=== PATIENT | male | born 1970 | race Caucasian/White ===

== ENCOUNTER 2016-06-15 16:27 | Outpatient (CLI) | payer MEDICAID | END 2016-06-15 16:28 | disposition home or self-care (01) | DX: Z01.810 Encounter for preprocedural cardiovascular examination (principal); I10 Essential (primary) hypertension ==

== ENCOUNTER 2016-06-20 05:59 | Day surgery (SDC) | payer MEDICAID ==
[2016-06-20] MEDS ORDERED: ceFAZolin 2 GM/50 ML 50 ML IV ONE (06:41)
[2016-06-20] MEDS ORDERED: LACTATED RINGERS 1,000 ML IV ONE ×2 (06:52→08:11)
[2016-06-20] MEDS ORDERED: ePHEDrine 50 MG/ML VIAL IVP ONE (08:00)
[2016-06-20] MEDS ORDERED: NEOSTIGMINE 1 MG/1 ML 10 ML MDV IVP ONE (08:00)
[2016-06-20] MEDS ORDERED: SUCCINYLCHOLINE 200 MG/10 ML VIAL IVP ONE (08:00)
[2016-06-20] MEDS ORDERED: LIDOCAINE-MPF 2% 5 ML VIAL IM ONE (08:00)
[2016-06-20] MEDS ORDERED: DEXAMETHASONE 4 MG/ML VIAL IVP ONE (08:00)
[2016-06-20] MEDS ORDERED: KETOROLAC 30 MG/ML VIAL IVP ONE (08:00)
[2016-06-20] MEDS ORDERED: PROPOFOL 200 MG/20 ML VIAL IVP ONE (08:00)
[2016-06-20] MEDS ORDERED: ONDANSETRON 4 MG/2 ML VIAL IVP ONE (08:00)
[2016-06-20] MEDS ORDERED: ROCURONIUM 50 MG/5 ML VIAL IVP ONE (08:00)
[2016-06-20] MEDS ORDERED: fentaNYL 250 MCG/5 ML VIAL IVP ONE (08:00)
[2016-06-20] MEDS ORDERED: MIDAZOLAM 2 MG/2 ML VIAL IVP ONE (08:00)
[2016-06-20] MEDS ORDERED: GLYCOPYRROLATE 1 MG/5 ML VIAL IVP ONE (08:00)
[2016-06-20] MEDS ORDERED: ACETAMINOPHEN 1,000 MG/100 ML VIAL IV ONE (08:00)
[2016-06-20] MEDS ORDERED: BUPIVACAINE 0.5% PF 30 ML VIAL INFIL ONE (08:01)
[2016-06-20] MEDS ORDERED: KETOROLAC 15 MG/ML VIAL ONE (09:30)
[2016-06-20] MEDS: HYDROmorphone 1 MG/ML SYRINGE ONE ×2 (09:38→09:48)
[2016-06-20] MEDS ORDERED: oxyCOD/ACETAMIN 5 MG/325 MG TABLET PO ONE (10:25)
== END 2016-06-20 06:00 | disposition home or self-care (01) ==
PROC: 0YU64JZ Supplement Left Inguinal Region with Synthetic Substitute, Percutaneous Endoscopic Approach (ICD-10-PCS; principal; 2016-06-20 07:30)
DX: K40.91 Unilateral inguinal hernia, without obstruction or gangrene, recurrent (principal); I10 Essential (primary) hypertension; F17.210 Nicotine dependence, cigarettes, uncomplicated; Z88.5 Allergy status to narcotic agent; G47.33 Obstructive sleep apnea (adult) (pediatric)
CPT/HCPCS: 49651; A9270; C1781; J0131; J0690; J1170; J3010; J7120

== ENCOUNTER 2018-05-30 12:50 | Emergency (ER) | payer MEDICAID ==
[2018-05-30 13:05] VITALS: BP 160/100
== END 2018-05-30 14:00 | disposition left against medical advice (07) ==
LOC: ED 12:50
DX: S61.411A Laceration without foreign body of right hand, initial encounter (principal); W31.1XXA Contact with metalworking machines, initial encounter; Z53.21 Procedure and treatment not carried out due to patient leaving prior to being seen by health care provider
CPT/HCPCS: 99282

== ENCOUNTER 2019-09-08 20:58 | Outpatient (CLI) | payer MEDICAID | END 2019-09-08 20:59 | disposition critical access hospital (66) | LOC: EMS 20:58 | PROVIDERS: ATTEND Surgery | DX: R46.4 Slowness and poor responsiveness (principal); R45.851 Suicidal ideations; Z72.89 Other problems related to lifestyle | CPT/HCPCS: A0425; A0429; A0999 ==

== ENCOUNTER 2019-09-08 21:33 | Emergency (ER) | payer MEDICAID ==
--- NOTE | 2019-09-08 21:32 | ED Physician Documentation ---
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 Per EMS, patient's friend called 911 due to patient exhibiting decreased level of consciousness. Per EMS report, patient admits to drinking a fifth (hard liquor). Patient admits he has used methamphetamines (smoked). He arrives to ED awake, alert, oriented x 3. Review of Systems Constitutional: denies: Fever Cardiac: denies: Chest pain / pressure Respiratory: denies: Dyspnea, Cough GI: denies: Abdominal Pain Neurologic: reports: Altered mental status. denies: Generalized weakness, Focal weakness, Numbness, Headache, Head injury PD PAST MEDICAL HISTORY - Past Medical History Past Medical History: No - Present Medications Home Medications: Ambulatory Orders Medication Instructions Recorded Confirmed Losartan Potassium 100 mg PO DAILY 12/02/13 06/20/16 - Allergies Allergies/Adverse Reactions: Allergies Allergy/AdvReac Type Severity Reaction Status Date / Time codeine Allergy Intermediate Hives Verified 05/30/18 13:04 - Living Situation Living Arrangement: reports: At home - Social History Does the pt drink ETOH?: Yes Substance Use and Type: Meth PD ED PE NORMAL - Vitals Vital signs reviewed: Yes - General General: Alert and oriented X 3, No acute distress, Well developed/nourished, Other - HEENT HEENT: Atraumatic, PERRL, EOMI, Moist mucous membranes - Cardiac Cardiac: RRR, No murmur - Respiratory Respiratory: No respiratory distress, Clear bilaterally - Abdomen Abdomen: Soft, Non tender - Derm Derm: Normal color, Warm and dry - Neuro Neuro: Alert and oriented X 3 Eye Opening: Spontaneous Motor: Obeys Commands Verbal: Oriented GCS Score: 15 Results - Vitals Vitals: Vital Signs - 24 hr 09/08/19 21:37 Temperature 36.8 C Heart Rate 95 Respiratory 14 Rate Blood Pressure 145/103 H O2 Saturation 100 Oxygen O2 Source Room air - Labs Labs: Laboratory Tests 09/08/19 09/08/19 09/08/19 21:50 21:50 21:50 WBC 9.3 RBC 5.52 Hgb 17.7 Hct 51.5 MCV 93.3 MCH 32.1 H MCHC 34.4 RDW 13.2 Plt Count 288 MPV 9.7 Neut # (Auto) 6.0 Lymph # (Auto) 2.4 [place] # (Auto) 0.5 Eos # (Auto) 0.3 Baso # (Auto) 0.1 Absolute Nucleated RBC 0.00 Nucleated RBC % 0.0 Sodium 142 Potassium 3.6 Chloride 103 Carbon Dioxide 28 Anion Gap 11.0 BUN 11 Creatinine 0.8 Estimated GFR (MDRD) 103 Glucose 103 H Calcium 9.2 Total Bilirubin 0.7 AST 17 ALT 14 Alkaline Phosphatase 81 Total Protein 7.5 Albumin 4.4 Globulin 3.1 Albumin/Globulin Ratio 1.4 Lipase 26 Urine Color YELLOW Urine Clarity CLEAR Urine pH 6.0 Ur Specific [place] <=1.005 Urine Protein NEGATIVE Urine Glucose (UA) NEGATIVE Urine Ketones NEGATIVE Urine Occult Blood NEGATIVE Urine Nitrite NEGATIVE Urine Bilirubin NEGATIVE Urine Urobilinogen 0.2 (NORMAL) Ur Leukocyte Esterase NEGATIVE Ur Microscopic Review NOT INDICATED Urine Culture Comments NOT INDICATED Salicylates < 6.0 Urine Opiates Screen NEGATIVE Ur Oxycodone Screen NEGATIVE Urine Methadone Screen NEGATIVE Ur Propoxyphene Screen NEGATIVE Acetaminophen < 10 L Ur Barbiturates Screen NEGATIVE Ur Tricyclics Screen NEGATIVE Ur Phencyclidine Scrn NEGATIVE Ur Amphetamine Screen POSITIVE H U Methamphetamines Scrn POSITIVE H U Benzodiazepines Scrn NEGATIVE Urine Cocaine Screen NEGATIVE U Cannabinoids Screen NEGATIVE Ethyl Alcohol 162.9 PD MEDICAL DECISION MAKING - ED course Complexity details: reviewed results, re-evaluated patient, considered differential, d/w patient ED course: test results c/w alcohol intoxication and UDS is positive for methamphetamines. Patient's mother arrived to ED late in his stay and tells me that patient is suicidal and she wants him placed "on suicide watch" (per patient's mother). I ask her to clarify what she means by this, and she says she wants him placed on a 72-hour hold. I explained to her that he has not indicated to me that he is suicidal; she then confronted the patient about this and he repeatedly denies suicidal intent. A brief verbal argument ensued between patient and his mother and he then walked out of the ED. Patient's mother tells me that patient's friend told her that he had expressed suicidal thoughts. I do not feel that this third-hand information is sufficient to hold patient against his will in the ED and I explained this to patient's mother; she did not appear to be satisfied with this explanation. Of note, despite patient's alcohol level, he was AAOx3 and thus I do not feel that this was sufficient cause to hold patient in the ED against his will Departure - Departure Disposition: ED [place] Clinical Impression: Methamphetamine use Alcohol intoxication Qualifiers: Complication of substance-induced condition: uncomplicated Qualified Code(s): F10.920 - Alcohol use, unspecified with intoxication, uncomplicated Condition: Good Discharge Date/Time: 09/08/19 23:32
[2019-09-08 21:41] VITALS: BP 145/103
[2019-09-08 21:52] LABS: MUDS CUTOFF CONCENTRATIONS CUTOFF CONC BELOW:
[2019-09-08 21:54] LABS: BASOPHILS # (AUTO) 0.1 10^3/uL (0.0-0.1); BASOPHILS % (AUTO) 0.6 %; EOSINOPHILS # (AUTO) 0.3 10^3/uL (0.0-0.7); HGB - HEMOGLOBIN 17.7 g/dL (14.0-18.0); LYMPHOCYTES # (AUTO) 2.4 10^3/uL (1.5-3.5); MEAN CORPUSCULAR HEMOGLOBIN 32.1 pg (27.0-31.0); MEAN CORPUSCULAR HGB CONC 34.4 g/dL (32.0-36.0); MEAN CORPUSCULAR VOLUME 93.3 fL (80.0-94.0); MEAN PLATELET VOLUME 9.7 fL (7.4-11.4); MONOCYTES # (AUTO) 0.5 10^3/uL (0.0-1.0); MONOCYTES % (AUTO) 5.8 %; NEUTROPHILS % (AUTO) 64.4 %; PLT - PLATELET COUNT 288 10^3/uL (130-450); RED BLOOD COUNT 5.52 10^6/uL (4.70-6.10); RED CELL DISTRIBUTION WIDTH 13.2 % (12.0-15.0); WHITE BLOOD COUNT 9.3 x10^3/uL (4.8-10.8)
[2019-09-08 21:55] LABS: BILIRUBIN,URINE NEGATIVE (NEGATIVE); GLUCOSE, URINE (UA) NEGATIVE (NEGATIVE); KETONES,URINE (UA) NEGATIVE (NEGATIVE); LEUKOCYTE ESTERASE, URINE NEGATIVE (NEGATIVE); NITRITE,URINE NEGATIVE (NEGATIVE); OCCULT BLOOD,URINE NEGATIVE (NEGATIVE); PROTEIN,URINE NEGATIVE (NEGATIVE); UROBILINOGEN,URINE 0.2 (NORMAL) E.U./dL (NORMAL)
[2019-09-08 21:57] LABS: CLARITY,URINE CLEAR (CLEAR)
[2019-09-08 22:08] LABS: ACETAMINOPHEN < 10 ug/mL (10-30); ALBUMIN 4.4 g/dL (3.2-5.5); ALBUMIN/GLOBULIN RATIO 1.4 (1.0-2.2); ALKALINE PHOSPHATASE 81 IU/L (42-121); ALT ALANINE AMINOTRANSFERASE 14 IU/L (10-60); AMPHETAMINE SCREEN,URINE POSITIVE (NEGATIVE); AST ASPARTATE AMINOTRANSFERASE 17 IU/L (10-42); BENZODIAZEPINES SCREEN, URINE NEGATIVE (NEGATIVE); BILIRUBIN,TOTAL 0.7 mg/dL (0.2-1.0); BUN - BLOOD UREA NITROGEN 11 mg/dL (6-20); CALCIUM 9.2 mg/dL (8.5-10.3); CARBON DIOXIDE - CO2 28 mmol/L (21-32); CHLORIDE 103 mmol/L (101-111); COCAINE SCREEN URINE NEGATIVE (NEGATIVE); CREATININE 0.8 mg/dL (0.6-1.2); GLUCOSE 103 mg/dL (70-100); LIPASE 26 U/L (22-51); METHADONE SCREEN, URINE NEGATIVE (NEGATIVE); METHAMPHETAMINES SCREEN, URINE POSITIVE (NEGATIVE); OPIATE SCREEN, URINE NEGATIVE (NEGATIVE); OXYCODONE SCREEN, URINE NEGATIVE (NEGATIVE); PROPOXYPHENE SCREEN, URINE NEGATIVE (NEGATIVE); SALICYLATE < 6.0 mg/dL; SODIUM 142 mmol/L (135-145); TOTAL PROTEIN 7.5 g/dL (6.7-8.2); TRICYCLIC ANTIDEPRESSANT,URINE NEGATIVE (NEGATIVE)
== END 2019-09-08 23:32 | disposition left against medical advice (07) ==
LOC: EDUNIT# → ED 21:33
DX: F15.90 Other stimulant use, unspecified, uncomplicated (principal); F10.920 Alcohol use, unspecified with intoxication, uncomplicated
CPT/HCPCS: 36415; 80053; 80306; 80307; 80320; 80329; 81001; 81003; 83690; 85025; 87086; 99283; 99284

== ENCOUNTER 2019-09-09 12:58 | Emergency (ER) | payer MEDICAID ==
--- NOTE | 2019-09-09 13:06 | ED Physician Documentation ---
PD HPI MHE - Stated complaint Stated Complaint: MHE - History obtained from History obtained from: Patient, Police - History of Present Illness Primary symptom: Medical clearance (48-year-old gentleman brought in accompanied by to 's deputies with residential paperwork from the DCR. Initially asking the patient, he does not know why he is here. He says simply that he got really drunk last night and also used some dope, he was here last night and eloped, it looks like the mom claimed that he had said something about suicidal ideation but the patient left. Now brought back and after talking to the DCR Cheri, there is significant concern about his behavior as an outpatient and he has access to guns which he lied about and not all of them have been found.) Review of Systems Ten Systems: 10 systems reviewed and negative Constitutional: reports: Reviewed and negative Nose: reports: Reviewed and negative Throat: reports: Reviewed and negative Respiratory: reports: Reviewed and negative PD PAST MEDICAL HISTORY - Present Medications Home Medications: Ambulatory Orders Medication Instructions Recorded Confirmed Losartan Potassium 100 mg PO DAILY 12/02/13 06/20/16 - Allergies Allergies/Adverse Reactions: Allergies Allergy/AdvReac Type Severity Reaction Status Date / Time codeine Allergy Intermediate Hives Verified 05/30/18 13:04 - Social History Does the pt smoke?: Yes Smoking Status: Current every day smoker Does the pt drink ETOH?: Yes Does the pt have substance abuse?: Yes Substance Use and Type: Meth - Family History Family history: reports: Non contributory PD ED PE NORMAL - Vitals Vital signs reviewed: Yes - General General: Alert and oriented X 3, No acute distress - HEENT HEENT: PERRL, EOMI - Neck Neck: Supple, no meningeal sign, No bony TTP - Cardiac Cardiac: RRR, No murmur - Respiratory Respiratory: No respiratory distress, Clear bilaterally - Abdomen Abdomen: Normal bowel sounds, Soft, Non tender - Back Back: No CVA TTP, No spinal TTP - Derm Derm: Normal color, Warm and dry - Extremities Extremities: No edema, No calf tenderness / cord - Neuro Neuro: Alert and oriented X 3, No motor deficit, No sensory deficit, Normal speech Eye Opening: Spontaneous Motor: Obeys Commands Verbal: Oriented GCS Score: 15 - Psych Psych: Normal mood, Normal affect Results - Vitals Vitals: Vital Signs - 24 hr 09/09/19 09/09/19 09/09/19 13:07 18:40 19:39 Temperature 36.8 C 36.9 C 36.8 C Heart Rate 107 H 97 98 Respiratory 20 16 16 Rate Blood Pressure 175/116 H 165/104 H 139/90 H O2 Saturation 100 99 97 Oxygen O2 Source Room air - Labs Labs: Laboratory Tests 09/09/19 09/09/19 09/09/19 13:17 13:17 13:17 WBC 8.8 RBC 5.77 Hgb 18.3 H Hct 52.7 H MCV 91.3 MCH 31.7 H MCHC 34.7 RDW 13.1 Plt Count 315 MPV 9.8 Neut # (Auto) 5.8 Lymph # (Auto) 1.9 [place] # (Auto) 0.8 Eos # (Auto) 0.3 Baso # (Auto) 0.1 Absolute Nucleated RBC 0.00 Nucleated RBC % 0.0 Sodium 138 Potassium 3.6 Chloride 99 L Carbon Dioxide 29 Anion Gap 10.0 BUN 14 Creatinine 0.8 Estimated GFR (MDRD) 103 Glucose 100 Calcium 9.5 Total Bilirubin 0.9 AST 20 ALT 17 Alkaline Phosphatase 81 Total Protein 7.7 Albumin 4.6 Globulin 3.1 Albumin/Globulin Ratio 1.5 Lipase 28 TSH 1.58 Salicylates < 6.0 Urine Opiates Screen Ur Oxycodone Screen Urine Methadone Screen Ur Propoxyphene Screen Acetaminophen < 10 L Ur Barbiturates Screen Ur Tricyclics Screen Ur Phencyclidine Scrn Ur Amphetamine Screen U Methamphetamines Scrn U Benzodiazepines Scrn Urine Cocaine Screen U Cannabinoids Screen Ethyl Alcohol < 5.0 09/09/19 13:21 WBC RBC Hgb Hct MCV MCH MCHC RDW Plt Count MPV Neut # (Auto) Lymph # (Auto) [place] # (Auto) Eos # (Auto) Baso # (Auto) Absolute Nucleated RBC Nucleated RBC % Sodium Potassium Chloride Carbon Dioxide Anion Gap BUN Creatinine Estimated GFR (MDRD) Glucose Calcium Total Bilirubin AST ALT Alkaline Phosphatase Total Protein Albumin Globulin Albumin/Globulin Ratio Lipase TSH Salicylates Urine Opiates Screen NEGATIVE Ur Oxycodone Screen NEGATIVE Urine Methadone Screen NEGATIVE Ur Propoxyphene Screen NEGATIVE Acetaminophen Ur Barbiturates Screen NEGATIVE Ur Tricyclics Screen NEGATIVE Ur Phencyclidine Scrn NEGATIVE Ur Amphetamine Screen POSITIVE H U Methamphetamines Scrn NEGATIVE U Benzodiazepines Scrn NEGATIVE Urine Cocaine Screen NEGATIVE U Cannabinoids Screen NEGATIVE Ethyl Alcohol PD MEDICAL DECISION MAKING - ED course ED course: Based on statements from mother the patient is being detained by the DCR for inpatient treatment and is involuntary for same. DCR found a bed at [facility] and cobras were completed. He is stable for transport. Departure - Departure Disposition: 65 [facility]/Unit DC/Xfer Clinical Impression: Drug abuse, Alcohol abuse
[2019-09-09 13:29] LABS: MUDS CUTOFF CONCENTRATIONS CUTOFF CONC BELOW:
[2019-09-09 13:37] LABS: ACETAMINOPHEN < 10 ug/mL (10-30); ALBUMIN 4.6 g/dL (3.2-5.5); ALBUMIN/GLOBULIN RATIO 1.5 (1.0-2.2); ALKALINE PHOSPHATASE 81 IU/L (42-121); ALT ALANINE AMINOTRANSFERASE 17 IU/L (10-60); AST ASPARTATE AMINOTRANSFERASE 20 IU/L (10-42); BILIRUBIN,TOTAL 0.9 mg/dL (0.2-1.0); BUN - BLOOD UREA NITROGEN 14 mg/dL (6-20); CALCIUM 9.5 mg/dL (8.5-10.3); CARBON DIOXIDE - CO2 29 mmol/L (21-32); CHLORIDE 99 mmol/L (101-111); CREATININE 0.8 mg/dL (0.6-1.2); GLUCOSE 100 mg/dL (70-100); LIPASE 28 U/L (22-51); SALICYLATE < 6.0 mg/dL; SODIUM 138 mmol/L (135-145); TOTAL PROTEIN 7.7 g/dL (6.7-8.2)
[2019-09-09 13:42] LABS: AMPHETAMINE SCREEN,URINE POSITIVE (NEGATIVE); BENZODIAZEPINES SCREEN, URINE NEGATIVE (NEGATIVE); COCAINE SCREEN URINE NEGATIVE (NEGATIVE); METHADONE SCREEN, URINE NEGATIVE (NEGATIVE); METHAMPHETAMINES SCREEN, URINE NEGATIVE (NEGATIVE); OPIATE SCREEN, URINE NEGATIVE (NEGATIVE); OXYCODONE SCREEN, URINE NEGATIVE (NEGATIVE); PROPOXYPHENE SCREEN, URINE NEGATIVE (NEGATIVE); TRICYCLIC ANTIDEPRESSANT,URINE NEGATIVE (NEGATIVE)
[2019-09-09 13:48] LABS: BASOPHILS # (AUTO) 0.1 10^3/uL (0.0-0.1); BASOPHILS % (AUTO) 0.7 %; EOSINOPHILS # (AUTO) 0.3 10^3/uL (0.0-0.7); HGB - HEMOGLOBIN 18.3 g/dL (14.0-18.0); LYMPHOCYTES # (AUTO) 1.9 10^3/uL (1.5-3.5); LYMPHOCYTES % (AUTO) 21.3 %; MEAN CORPUSCULAR HEMOGLOBIN 31.7 pg (27.0-31.0); MEAN CORPUSCULAR HGB CONC 34.7 g/dL (32.0-36.0); MEAN CORPUSCULAR VOLUME 91.3 fL (80.0-94.0); MEAN PLATELET VOLUME 9.8 fL (7.4-11.4); MONOCYTES # (AUTO) 0.8 10^3/uL (0.0-1.0); MONOCYTES % (AUTO) 8.5 %; NEUTROPHILS # (AUTO) 5.8 10^3/uL (1.5-6.6); PLT - PLATELET COUNT 315 10^3/uL (130-450); RED BLOOD COUNT 5.77 10^6/uL (4.70-6.10); RED CELL DISTRIBUTION WIDTH 13.1 % (12.0-15.0); WHITE BLOOD COUNT 8.8 x10^3/uL (4.8-10.8)
[2019-09-09] MEDS ORDERED: NICOTINE 14 MG PATCH TOP STA (17:27)
[2019-09-09 19:40] VITALS: BP 139/90
== END 2019-09-09 21:35 ==
LOC: ED 13:02
DX: F15.10 Other stimulant abuse, uncomplicated (principal); F10.10 Alcohol abuse, uncomplicated; F17.200 Nicotine dependence, unspecified, uncomplicated; Z11.59 Encounter for screening for other viral diseases
CPT/HCPCS: 36415; 80053; 80306; 80307; 80320; 80329; 83690; 84443; 85025; 87635; 99283; 99285; A9270; 81599

== ENCOUNTER 2019-09-18 08:31 | Inpatient (IN) | payer MEDICAID ==
[2019-09-18] MEDS ORDERED: SODIUM CHLORIDE 0.9% 1,000 ML IV STA (08:39)
[2019-09-18] MEDS ORDERED: HYDROmorphone 1 MG/ML CARPUJECT IVP STA ×2 (08:39→09:36)
--- NOTE | 2019-09-18 08:44 | ED Physician Documentation ---
PD HPI SKIN - Stated complaint Stated Complaint: ALLERGIC RX - History obtained from History obtained from: Patient - Additional information Additional information: 49-year-old gentleman with history of alcohol and drug abuse. He was recently detained for same and got out of the detox facility on the . On that date he received a Vivitrol Injection in the right buttock. About 3 days later, about 4 days ago, he started develop pain and swelling in the area of the injection and now pain is severe. He denies measured fevers but does have chills and sweats. He smoked some dope last night "for the pain." Review of Systems Ten Systems: 10 systems reviewed and negative Constitutional: reports: Chills, Sweats Cardiac: reports: Reviewed and negative Respiratory: reports: Reviewed and negative GI: reports: Reviewed and negative : reports: Reviewed and negative PD PAST MEDICAL HISTORY - Past Medical History Past Medical History: Yes Psych: Anxiety - Present Medications Home Medications: Ambulatory Orders Medication Instructions Recorded Confirmed Losartan Potassium 50 mg PO DAILY 12/02/13 09/18/19 - Allergies Allergies/Adverse Reactions: Allergies Allergy/AdvReac Type Severity Reaction Status Date / Time codeine Allergy Intermediate Hives Verified 05/30/18 13:04 - Social History Does the pt smoke?: Yes Smoking Status: Current every day smoker Does the pt drink ETOH?: Yes Does the pt have substance abuse?: Yes Substance Use and Type: Meth - Family History Family history: reports: Non contributory PD ED PE NORMAL - Vitals Vital signs reviewed: Yes - General General: Other (He appears somewhat histrionic and uncomfortable, clearly in pain.") - HEENT HEENT: PERRL, EOMI - Neck Neck: Supple, no meningeal sign, No bony TTP - Cardiac Cardiac: RRR, No murmur - Respiratory Respiratory: No respiratory distress, Clear bilaterally - Abdomen Abdomen: Soft, Non tender - Back Back: Other (There is an area of redness measuring Approximately 15 x 11 cm on the lateral right buttock. It is very tender. No crepitance.) - Derm Derm: Normal color, Warm and dry - Extremities Extremities: No edema, No calf tenderness / cord - Neuro Neuro: Alert and oriented X 3, Normal speech Results - Vitals Vitals: Vital Signs - 24 hr 09/18/19 09/18/19 09/18/19 08:41 09:07 09:34 Temperature 37 C 38.7 C H Heart Rate 93 88 88 Respiratory 24 22 18 Rate Blood Pressure 122/98 H 124/81 H 135/75 H O2 Saturation 100 100 100 09/18/19 09/18/19 10:00 10:30 Temperature Heart Rate 103 H 95 Respiratory 20 17 Rate Blood Pressure 137/67 H 122/70 O2 Saturation 98 99 Oxygen O2 Source Room air - Labs Labs: Laboratory Tests 09/18/19 09/18/19 09/18/19 08:45 08:45 08:45 WBC 13.6 H RBC 5.32 Hgb 16.2 Hct 46.6 MCV 87.6 MCH 30.5 MCHC 34.8 RDW 13.2 Plt Count 286 MPV 10.1 Neut # (Auto) Not Reportable Lymph # (Auto) Not Reportable [place] # (Auto) Not Reportable Eos # (Auto) Not Reportable Baso # (Auto) Not Reportable Absolute Nucleated RBC Not Reportable Total Counted 100 Band Neuts % (Manual) 4 Reactive Lymphs % (Man) 1 Abnorm Lymph % (Manual) 0 Nucleated RBC % Not Reportable Neutrophils # (Manual) 11.2 H Lymphocytes # (Manual) 1.6 Monocytes # (Manual) 0.7 Eosinophils # (Manual) 0.1 Basophils # (Manual) 0.0 Differential Comment MANUAL DIFFERENTIAL Sodium 134 L Potassium 3.5 Chloride 99 L Carbon Dioxide 23 Anion Gap 12.0 BUN 11 Creatinine 0.8 Estimated GFR (MDRD) 103 Glucose 116 H Lactic Acid 1.6 Calcium 8.8 Total Bilirubin 1.3 H AST 28 ALT 26 Alkaline Phosphatase 74 C-Reactive Protein Total Protein 7.1 Albumin 3.5 Globulin 3.6 Albumin/Globulin Ratio 1.0 Lipase 26 Ethyl Alcohol < 5.0 09/18/19 08:45 WBC RBC Hgb Hct MCV MCH MCHC RDW Plt Count MPV Neut # (Auto) Lymph # (Auto) [place] # (Auto) Eos # (Auto) Baso # (Auto) Absolute Nucleated RBC Total Counted Band Neuts % (Manual) Reactive Lymphs % (Man) Abnorm Lymph % (Manual) Nucleated RBC % Neutrophils # (Manual) Lymphocytes # (Manual) Monocytes # (Manual) Eosinophils # (Manual) Basophils # (Manual) Differential Comment Sodium Potassium Chloride Carbon Dioxide Anion Gap BUN Creatinine Estimated GFR (MDRD) Glucose Lactic Acid Calcium Total Bilirubin AST ALT Alkaline Phosphatase C-Reactive Protein 14.9 H Total Protein Albumin Globulin Albumin/Globulin Ratio Lipase Ethyl Alcohol - Rads (name of study) Ct Pelvis Radiology: EMP read contemporaneously (Intermediate density focus in the right gluteal musculature compatible with phlegmon and surrounding myositis.) PD MEDICAL DECISION MAKING - ED course ED course: 49-year-old gentleman presents with a buttock infection related to a recent Vivitrol injection. He was febrile here and has an elevated white count. Fluid collection is quite deep and would not be amenable to emergency department incision and drainage. Spoke with the on-call surgeon, Dr. Singleton at about 9:50 AM and he will see him after clinic today, defers to medicine for admission. Departure - Departure Disposition: 66 [facility] DC/Xfjake Clinical Impression: Abscess of buttock, right Condition: Serious Discharge Date/Time: 09/18/19 11:35
[2019-09-18 09:07] LABS: RED CELL DISTRIBUTION WIDTH 13.2 % (12.0-15.0)
[2019-09-18 09:11] LABS: BASOPHILS % (AUTO) 0.4 %; EOSINOPHILS % (AUTO) 1.6 %; HGB - HEMOGLOBIN 16.2 g/dL (14.0-18.0); LYMPHOCYTES % (AUTO) 9.6 %; MEAN CORPUSCULAR HEMOGLOBIN 30.5 pg (27.0-31.0); MEAN CORPUSCULAR HGB CONC 34.8 g/dL (32.0-36.0); MEAN CORPUSCULAR VOLUME 87.6 fL (80.0-94.0); MEAN PLATELET VOLUME 10.1 fL (7.4-11.4); MONOCYTES % (AUTO) 12.4 %; NEUTROPHILS % (AUTO) 75.6 %; PLT - PLATELET COUNT 286 10^3/uL (130-450); RED BLOOD COUNT 5.32 10^6/uL (4.70-6.10); WHITE BLOOD COUNT 13.6 x10^3/uL (4.8-10.8)
[2019-09-18 09:17] LABS: ALBUMIN 3.5 g/dL (3.2-5.5); ALKALINE PHOSPHATASE 74 IU/L (42-121); ALT ALANINE AMINOTRANSFERASE 26 IU/L (10-60); AST ASPARTATE AMINOTRANSFERASE 28 IU/L (10-42); BILIRUBIN,TOTAL 1.3 mg/dL (0.2-1.0); BUN - BLOOD UREA NITROGEN 11 mg/dL (6-20); CALCIUM 8.8 mg/dL (8.5-10.3); CARBON DIOXIDE - CO2 23 mmol/L (21-32); CHLORIDE 99 mmol/L (101-111); CREATININE 0.8 mg/dL (0.6-1.2); GLUCOSE 116 mg/dL (70-100); LIPASE 26 U/L (22-51); SODIUM 134 mmol/L (135-145); TOTAL PROTEIN 7.1 g/dL (6.7-8.2)
[2019-09-18] MEDS ORDERED: IOVERSOL 320 100 ML VIAL IVP ONE ×2 (09:17→13:35)
[2019-09-18 09:18] LABS: ABNORMAL LYMPHS % (MANUAL) 0 %
[2019-09-18] MEDS ORDERED: VANCOMYCIN INJ 1.5 GM in SODIUM CHLORIDE 0.9% 500 ML IV STA (09:36)
[2019-09-18] MEDS ORDERED: CEFEPIME 2 GM in SODIUM CHLORIDE 0.9% MINIBAG 100 ML IV STA (09:36)
[2019-09-18] MEDS ORDERED: ACETAMINOPHEN 325 MG TABLET PO STA (09:36)
[2019-09-18 09:47] LABS: BAND NEUTROPHILS % (MANUAL) 4 %; DIFFERENTIAL COMMENT MANUAL DIFFERENTIAL; EOSINOPHILS # (MANUAL) 0.1 10^3/uL (0-0.7); LYMPHOCYTES # (MANUAL) 1.6 10^3/uL (1.5-3.5); LYMPHOCYTES % (MANUAL) 11 %; MONOCYTES # (MANUAL) 0.7 10^3/uL (0.0-1.0)
--- NOTE | 2019-09-18 09:51 | CT Report ---
PROCEDURE: PELVIS W INDICATIONS: R buttock infection, IV only, CONTRAST: IV CONTRAST: Optiray 320 ml: 100 PO CONTRAST: *NO PO CONTRAST TECHNIQUE: After the administration of oral contrast and intravenous contrast, 5 mm thick sections acquired from the iliac crests to the symphysis. 5 mm thick coronal and sagittal reformats were acquired. For ra diation dose reduction, the following was used: automated exposure control, adjustment of mA and/or kV according to patient size. COMPARISON: FINDINGS: Image quality: Excellent. Peritoneum and bowel: Contrast enhanced bowel loops demonstrate normal wall thickness and caliber. No free fluid or air. Normal appendix. Genitourinary: Bladder wall thickness is normal. Nodes and vessels: No iliac, pelvic, or inguinal adenopathy. Iliac vessels demonstrate normal size and enhancement. Bones: No suspicious bony lesions. Bilateral L5-S1 pars interarticularis defects. Miscellaneous: Fat-containing left inguinal hernia. There is enlargement of the right gluteus medius musculature. There is a 45 mm diameter ill-defined intermediate density focus within the right glutea l musculature. There is moderate fast attending surrounding the right gluteal musculature. IMPRESSION: 1. Intermediate density focus within the right gluteal musculature, compatible with phlegmon. No perc utaneously drainable fluid collection. There is surrounding right gluteal myositis as well as overlyi ng subcutaneous cellulitis. 2. Normal appendix. 3. Bilateral L5-S1 pars interarticularis defects. Reviewed by: Марина Louie MD on 09/18/2019 9:49 AM PDT Approved by: Марина Louie MD on 09/18/2019 9:49 AM PDT Station ID: [id number]
[2019-09-18] MEDS ORDERED: VANCOMYCIN INJ 1.5 GM in SODIUM CHLORIDE 0.9% 500 ML IV ONE (10:15)
[2019-09-18] MEDS ORDERED: MORPHINE 2 MG/ML CARPUJECT IVP PRN (10:40)
[2019-09-18] MEDS ORDERED: ONDANSETRON 4 MG/2 ML VIAL IVP PRN (10:40)
--- NOTE | 2019-09-18 10:53 | HISTORY & PHYSICAL EXAMINATION ---
Chief Complaint - Chief Complaint Chief Complaint: buttock pain History of Present Illness - History of Present Illness HPI Comment/Other: This is 49-year-old gentleman with history of HTN, alcohol and drug abuse who present ER complain of right buttock pain. pt report he received Vivitrol Injection in the right buttock on detox facility on 09/11/2019. About 3-4 days ago, he started develop pain and swelling in the area where he had injection. His pain became more severe now. He denies measured fevers but he report he had chills and sweats. He report is still smoking cigarette and is smoking Meth on last night for "pain control." Patient denied chest pain, abdominal pain, nausea vomiting or diarrhea and denies difficulty breathing. CT of pelvis shows No percutaneously drainage fluid collection, There is surrounding right gluteal myositis as well as overlying subcutaneous cellutis. Concern of fluid collection, ER called surgeon for consultation. In routine lab test show significantly elevated WBC and elevated CRP Otherwise unremarkable. ER, patient was found febrile at 38.7 degrees. Patient was admitted for further medical management Discussed with the patient about his care goal, patient stay he request full code. History - Past Medical History Cardiovascular: reports: Hypertension Respiratory: reports: None Neuro: reports: Head injury Endocrine/Autoimmune: reports: None GI: reports: None : reports: None HEENT: reports: Chronic hearing loss Psych: reports: Anxiety Musculoskeletal: reports: Chronic back pain Derm: reports: None MRSA Hx?: No - Past Surgical History Ortho: reports: Carpal Tunnel surgery Derm: reports: Skin grafts - POLST Patient has POLST: No Meds/Allgy - Home Medications Home Medications: Ambulatory Orders Medication Instructions Recorded Confirmed Losartan Potassium 50 mg PO DAILY 12/02/13 09/18/19 - Allergies Allergies/Adverse Reactions: Allergies Allergy/AdvReac Type Severity Reaction Status Date / Time codeine Allergy Intermediate Hives Verified 05/30/18 13:04 Review of Systems - Constitutional Constitutional: reports: Chills. denies: Fatigue, Fever, Malaise, Weakness, Poor appetite, Diaphoresis, Night sweats - Eyes Eyes: denies: Pain, Blurred vision, Spots in vision, Field loss, Vision loss, Dipolpia - Ears, Nose & Throat Ears, Nose & Throat: denies: Hearing loss, Tinnitus, Vertigo, Nasal discharge, Nasal obstruction, Nasal congestion, Postnasal drainage, Sore throat, Mouth lesions, Bleeding gums - Cardiovascular Cariovascular: denies: Irregular heart rate, Palpitations, Chest pain, Edema, Lightheadedness, Syncope, Exertional dyspnea, Decr. exercise tolerance - Respiratory Respiratory: denies: Cough, Sputum production, Wheezing, Snoring, Hemoptysis, Orthopnea, SOB at rest, SOB with exertion - Gastrointestinal Gastrointestinal: denies: Abdominal pain, Abdominal distention, Constipation, Diarrhea, Rectal bleeding, Black stools, Bloody stools, Nausea, Vomiting, Bile emesis, Coffee grounds emesis - Genitourinary Genitourinary: denies: Frequency, Urgency, Hematuria, Incontinence, Flank pain, Nocturia - Musculoskeletal Musculoskeletal: reports: Muscle pain, Muscle aches. denies: Back pain, Stiffness, Limited range of motion, Muscle weakness, Gout, Joint pain - Integumentary Integumentary: reports: Other (pt report right buttock pain). denies: Rash, Pruritis, Dryness, Lumps, Pigment changes - Neurological Neurological: denies: General weakness, Focal weakness, Headache, Dizziness, Numbness, Memory problems, Pre-existing deficit, Abnormal gait, Seizures, Incoordination, Slurred speech - Psychiatric Psychiatric: denies: Suicidal, Delusions, Hallucinations, Homicidal - Endocrine Endocrine: denies: Polyuria, Polydypsia, Polyphagia - Hematologic/Lymphatic Hematologic/Lymphatic: denies: Anemia, Bruising, Petechiae, Blood clots, Lymphadenopathy, Bleeding tendencies Exam - Vital Signs Vital Signs: Vital Signs x48h Temp Pulse Resp BP Pulse Ox 09/18/19 10:48 37.5 C 94 16 122/70 98 09/18/19 10:30 95 17 122/70 99 09/18/19 10:00 103 H 20 137/67 H 98 09/18/19 09:34 38.7 C H 88 18 135/75 H 100 09/18/19 09:07 88 22 124/81 H 100 09/18/19 08:41 37 C 93 24 122/98 H 100 - Physical Exam General Appearance: positive: Alert, Mild distress. negative: Lethargic Eyes Bilateral: positive: Normal inspection, PERRL, No lid inflammation ENT: positive: ENT inspection nml, Pharynx nml, No signs of dehydration. negative: Purulent nasal drainage, Dry mucous membranes Neck: positive: Nml inspection, Thyroid nml, No JVD, Trachea midline. negative: Thyromegaly, Stiff neck, Tracheal deviation Respiratory: positive: Chest non-tender, No respiratory distress, Breath sounds nml. negative: Wheezes, Rales, Rhonchi Cardiovascular: positive: Regular rate & rhythm, No murmur, No gallop. ne gative: Tachycardia, Bradycardia, JVD present, Systolic murmur, Diastolic murmur Peripheral Pulses: positive: 2+ Abdomen: positive: Non-tender, No organomegaly, Nml bowel sounds, No distention. negative: Tenderness, Guarding, Rebound Back: positive: Nml inspection. negative: CVA tenderness (R), CVA tenderness (L) Skin: positive: Color nml, No rash, Warm, Dry, Other (right buttock is tender and swelling but with normal color. pt report he has pain on palpitation.). negative: Cyanosis, Diaphoresis, Pallor Extremities: positive: Non-tender, Nml appearance. negative: Calf tenderness, Chris's sign/cords Neurologic/Psychiatric: positive: Oriented x3, Motor nml, Sensation nml, Mood/affect nml. negative: Weakness, Sensory loss, Facial droop, Slurred/abnml speech, Depressed mood/affect Sepsis Event Note (H) - Evaluation Current Stage of Sepsis: Sepsis Possible source of Sepsis: positive: Skin/soft tissue - Sepsis Criteria Sepsis Criteria: Recorded Temperature greater than 38.3C or Less than 36C, Recorded Heart Rate greater than 90 bpm, WBC count greater than 10% bands, WBC count greater than 12,000 or less than 4000 Conclusion/Plan - Problem List (1) Sepsis Conclusion/Plan: Patient has a fever in hospital,Patient report chilly and sweating in the home. Patient report he had Vivitrol Injection about 7 days ago then A few days later he developed pain and swallow in this injection site. CAT scan show no percutaneously fluid collection but there is surrounding of cellulitis and myositis. Ultrasound show No drainable focal fluid collection such as abscess is identified, Consistent with infection or inflammation.The injection site was tenderness and swelling but with normal skin color without erythema. Blood culture was done in the ER. Patient was given Cefepime and vancomycin in the ER, we will continue cefepime and vancomycin. We will continue consult with surgeon if there is fluids collection or abscess developed, Will continue pain control and continue intravenous of normal saline, We will precaution of sepsis,Closely monitor patient vital signs. (2) Cellulitis Conclusion/Plan: CAT scan show cellulitis in his right buttock injection site. There is swollen and tenderness. Blood culture is pending, will continue cefepime and vancomycin (3) HTN (hypertension) Conclusion/Plan: Patient has history of hypertension, we will hold blood pressure medication Cozaar, closely monitor patient and precaution of sepsis hypotension (4) Drug abuse Conclusion/Plan: Patient has a history of drug abuse, he will report he still use methamphetamine, we will check drug screen, and it is pending, we will add ativan for anxiety and precaution of drug withdrawal. - Lab Results Fish Bones: 09/18/19 08:45 09/18/19 08:45 Core Measures - Anticipated LOS I expect patient to be DC'd or transferred within 96 hours.: Yes - DVT/VTE - Prophylaxis VTE/DVT Device ordered at admit?: Yes VTE/DVT Prophylaxis med ordered at admit?: Yes
[2019-09-18] MEDS: NICOTINE 14 MG PATCH TOP SCH (12:41)
[2019-09-18] MEDS: HYDROmorphone 1 MG/ML CARPUJECT IVP PRN ×6 (12:45→23:48)
[2019-09-18] MEDS: SODIUM CHLORIDE FLUSH 0.9% 10 ML SYRINGE IVP PRN ×2 (12:46→19:29)
--- NOTE | 2019-09-18 13:35 | ANESTHESIA ---
Pre-Anesthesia VS, & Labs - Diagnosis deep right lateral gluteal abcess - Procedure I and D of gluteal abcess Vital Signs: Temp Pulse Resp BP Pulse Ox 36.8 C 90 16 101/60 98 09/18/19 12:30 09/18/19 12:30 09/18/19 12:30 09/18/19 12:30 09/18/19 12:30 Height 5 ft 9 in Weight (kg) 84 kg Body Mass Index 27.3 - Lab Results Current Lab Results: Laboratory Tests 09/18/19 08:45: C-Reactive Protein 14.9 H 09/18/19 08:45: Lactic Acid 1.6 09/18/19 08:45: Sodium 134 L, Potassium 3.5, Chloride 99 L, Carbon Dioxide 23, Anion Gap 12.0, BUN 11, Creatinine 0.8, Estimated GFR (MDRD) 103, Glucose 116 H, Calcium 8.8, Total Bilirubin 1.3 H, AST 28, ALT 26, Alkaline Phosphatase 74, Total Protein 7.1, Albumin 3.5, Globulin 3.6, Albumin/Globulin Ratio 1.0, Lipase 26, Ethyl Alcohol < 5.0 09/18/19 08:45: WBC 13.6 H, RBC 5.32, Hgb 16.2, Hct 46.6, MCV 87.6, MCH 30.5, MCHC 34.8, RDW 13.2, Plt Count 286, MPV 10.1, Neut # (Auto) Not Reportable, Lymph # (Auto) Not Reportable, [place] # (Auto) Not Reportable, Eos # (Auto) Not Reportable, Baso # (Auto) Not Reportable, Absolute Nucleated RBC Not Reportable, Total Counted 100, Band Neuts % (Manual) 4, Reactive Lymphs % (Man) 1, Abnorm Lymph % (Manual) 0, Nucleated RBC % Not Reportable, Neutrophils # (Manual) 11.2 H, Lymphocytes # (Manual) 1.6, Monocytes # (Manual) 0.7, Eosinophils # (Manual) 0.1, Basophils # (Manual) 0.0, Differential Comment MANUAL DIFFERENTIAL Fish Bones: 09/18/19 08:45 09/18/19 08:45 Home Medications and Allergies Active Medications Acetaminophen (Tylenol) 650 mg PO Q4HR PRN PRN Reason: Pain 1 to 4 Enoxaparin Sodium (Lovenox) 40 mg SUBQ DAILY DELFINA Hydromorphone HCl (Dilaudid Inj Carp) 1 mg IVP Q4HR PRN PRN Reason: PAIN Last Admin: 09/18/19 12:45 Dose: 1 mg Documented by: Sodium Chloride (Normal Saline 0.9%) 1,000 mls @ 100 mls/hr IV .Q10H DELFINA Cefepime HCl 2 gm/ Sodium (Chloride) 100 mls @ 200 mls/hr IV BID DELFINA Vancomycin HCl 1 gm/Vancomycin HCl 250 mg/ Sodium Chloride 250 mls @ 166.667 mls/hr IV Q12H DELFINA Nicotine (Nicoderm) 1 patch TOP DAILY DELFINA Last Admin: 09/18/19 12:41 Dose: 1 patch Documented by: Ondansetron HCl (Zofran Inj) 4 mg IVP Q6HR PRN PRN Reason: Nausea / Vomiting Pantoprazole Sodium (Protonix) 40 mg PO QDAC [facility] Sodium Chloride (Normal Saline Flush 0.9%) 10 ml IVP PRN PRN PRN Reason: NEEDED PER PROVIDER ORDERS Last Admin: 09/18/19 12:46 Dose: 10 ml Documented by: Sodium Chloride (Normal Saline Flush 0.9%) 10 ml IVP 0100,0900,1700 DELFINA Zolpidem Tartrate (Ambien) 5 mg PO QPM PRN PRN Reason: Insomnia Losartan Potassium 50 mg PO DAILY 12/02/13 Allergies/Adverse Reactions: Allergies Allergy/AdvReac Type Severity Reaction Status Date / Time codeine Allergy Intermediate Hives Verified 05/30/18 13:04 Anes History & Medical History - Medical History Cardiovascular: reports: Hypertension Pulmonary: reports: None Gastrointestinal: reports: None Urinary: reports: None Neuro: reports: Head injury Musculoskeletal: reports: Chronic back pain Endocrine/Autoimmune: reports: None Blood Disorders: reports: None Skin: reports: None Smoking Status: Current every day smoker - Surgical History Orthopedic: Carpal Tunnel surgery Dermatologic: Skin grafts
[2019-09-18] MEDS: SODIUM CHLORIDE 0.9% 1,000 ML IV SCH (13:39)
--- NOTE | 2019-09-18 15:00 | PHARMACY PROGRESS NOTE ---
- Best Possible Medication History Admit Date and Time: 09/18/19 1040 Processed by: Pharmacy Medication History completed: Yes Secondary Source(s): Physician records, Pharmacy records, Insurance records As the person ultimately responsible for medication therapy, providers are able to order a medication from an existing home medication list in [facility] via the "Reconcile Routine" prior to Confirmation of that medication by application support engineer. Such practice is discouraged except when the physician, in their clinical judgment, deems that a medical need exists for a medication without regard to previous use.
[2019-09-18] MEDS: ACETAMINOPHEN 325 MG TABLET PO PRN ×2 (15:02→20:38)
[2019-09-18] MEDS ORDERED: SODIUM CHLORIDE 0.9% 500 ML IV ONE (15:29)
--- NOTE | 2019-09-18 15:32 | Ultrasound Report ---
PROCEDURE: Ext Limited Non Vascular INDICATIONS: if right buttock abscess TECHNIQUE: Real-time scanning was performed of the right gluteal region, with image documentation. COMPARISON: None. FINDINGS: Sonographic images demonstrate prominent subcutaneous and intramuscular fluid within the r ight gluteal region. No well-defined focal collection such as abscess is identified. IMPRESSION: Subcutaneous and intramuscular fluid within the right gluteal region most consistent wit h infection or inflammation. No drainable focal fluid collection such as abscess is identified. Reviewed by: Shannan Pavon MD on 09/18/2019 3:31 PM PDT Approved by: Shannan Pavon MD on 09/18/2019 3:31 PM PDT Station ID: [id number]
[2019-09-18] MEDS: LORazepam 0.5 MG TABLET PO PRN (17:17)
[2019-09-18] MEDS: SODIUM CHLORIDE FLUSH 0.9% 10 ML SYRINGE IVP SCH (17:21)
--- NOTE | 2019-09-18 19:17 | CONSULTATION NOTE ---
Referring Provider Name of Referring Provider:: ED Consult Date: 09/18/19 Chief Complaint - Chief Complaint Chief Complaint: right buttock pain and swelling History of Present Illness - Admitted From Admitted From:: ED - History Obtained From Records Reviewed: yes History obtained from: chart review and patient Exam Limitations: none - History of Present Illness HPI Comment/Other: 49 year old with right buttock pain last few days, getting worse. He had a vivitrol injection right buttock about a week ago. He has had a low grade fever. He has not had signs or symptoms of systemic infection. He has had a good appetite and recently ate. WBC is 13. CT scan shows right gluteal myositis without drainable fluid collection. No air in the soft tissues. Mild edema. History - Past Medical History Cardiovascular: reports: Hypertension Respiratory: reports: None Neuro: reports: Head injury Endocrine/Autoimmune: reports: None GI: reports: None : reports: None HEENT: reports: Chronic hearing loss Psych: reports: Anxiety Musculoskeletal: reports: Chronic back pain Derm: reports: None MRSA Hx?: No - Past Surgical History Ortho: reports: Carpal Tunnel surgery Derm: reports: Skin grafts - POLST Patient has POLST: No Meds/Allgy - Home Medications Home Medications: Ambulatory Orders Medication Instructions Recorded Confirmed Losartan Potassium 50 mg PO DAILY 12/02/13 09/18/19 - Allergies Allergies/Adverse Reactions: Allergies Allergy/AdvReac Type Severity Reaction Status Date / Time codeine Allergy Intermediate Hives Verified 05/30/18 13:04 Exam - Vital Signs Vital Signs: Vital Signs x48h Temp Pulse Pulse Pulse Resp BP BP 09/18/19 16:00 37.5 C 86 16 132/70 H 09/18/19 12:30 36.8 C 90 16 101/60 09/18/19 11:21 36.7 C 97 16 133/77 H Pulse Ox 09/18/19 16:00 98 09/18/19 12:30 98 09/18/19 11:21 99 - Physical Exam General Appearance: positive: No acute distress, Alert Eyes Bilateral: positive: Normal inspection, PERRL, EOMI Neck: positive: No JVD Respiratory: positive: No respiratory distress Abdomen: positive: No distention Skin: positive: Color nml Extremities: positive: Other (right lateral buttock swelling. normal skin. mild tenderness. no erythema, crepitance.) Neurologic/Psychiatric: positive: Oriented x3 Conclusion and Plan - Lab Results Laboratory Results 09/18/19 08:45: C-Reactive Protein 14.9 H 09/18/19 08:45: Lactic Acid 1.6 09/18/19 08:45: Sodium 134 L, Potassium 3.5, Chloride 99 L, Carbon Dioxide 23, Anion Gap 12.0, BUN 11, Creatinine 0.8, Estimated GFR (MDRD) 103, Glucose 116 H, Calcium 8.8, Total Bilirubin 1.3 H, AST 28, ALT 26, Alkaline Phosphatase 74, Total Protein 7.1, Albumin 3.5, Globulin 3.6, Albumin/Globulin Ratio 1.0, Lipase 26, Ethyl Alcohol < 5.0 09/18/19 08:45: WBC 13.6 H, RBC 5.32, Hgb 16.2, Hct 46.6, MCV 87.6, MCH 30.5, MCHC 34.8, RDW 13.2, Plt Count 286, MPV 10.1, Neut # (Auto) Not Reportable, Lymph # (Auto) Not Reportable, [place] # (Auto) Not Reportable, Eos # (Auto) Not Reportable, Baso # (Auto) Not Reportable, Absolute Nucleated RBC Not Reportable, Total Counted 100, Band Neuts % (Manual) 4, Reactive Lymphs % (Man) 1, Abnorm Lymph % (Manual) 0, Nucleated RBC % Not Reportable, Neutrophils # (Manual) 11.2 H, Lymphocytes # (Manual) 1.6, Monocytes # (Manual) 0.7, Eosinophils # (Manual) 0.1, Basophils # (Manual) 0.0, Differential Comment MANUAL DIFFERENTIAL - Diagnostic Imaging Results Diagnostic Imaging Results: positive: Final report reviewed, Read independently - Diagnosis Diagnosis: right gluteus muscle swelling and pain 1 week after naltrexone injection. He has mild temperature and mild elevation in his wbc of 13. No air in his soft tissues. No systemic illness. No cellulitis or crepitance. - Plan Plan: agree with present care. If he is not improving plan I and D. He has no signs of systemic illness, cellulitis, or necrotizing infection at this time
[2019-09-18] MEDS: CEFEPIME 2 GM in SODIUM CHLORIDE 0.9% MINIBAG 100 ML IV SCH (20:21)
[2019-09-18] MEDS: VANCOMYCIN INJ 1 GM, VANCOMYCIN INJ 250 MG in SODIUM CHLORIDE 0.9% 250 ML IV SCH (21:02)
[2019-09-18 22:44] LABS: MUDS CUTOFF CONCENTRATIONS CUTOFF CONC BELOW:
[2019-09-18 22:56] LABS: AMPHETAMINE SCREEN,URINE POSITIVE (NEGATIVE); BENZODIAZEPINES SCREEN, URINE NEGATIVE (NEGATIVE); COCAINE SCREEN URINE NEGATIVE (NEGATIVE); METHADONE SCREEN, URINE NEGATIVE (NEGATIVE); METHAMPHETAMINES SCREEN, URINE POSITIVE (NEGATIVE); OPIATE SCREEN, URINE POSITIVE (NEGATIVE); OXYCODONE SCREEN, URINE NEGATIVE (NEGATIVE); PROPOXYPHENE SCREEN, URINE NEGATIVE (NEGATIVE); TRICYCLIC ANTIDEPRESSANT,URINE NEGATIVE (NEGATIVE)
[2019-09-18] MEDS: KETOROLAC 30 MG/ML VIAL IVP PRN (23:43)
[2019-09-18] MEDS: ZOLPIDEM 5 MG TABLET PO PRN (23:44)
[2019-09-19] MEDS: SODIUM CHLORIDE 0.9% 1,000 ML IV SCH ×3 (00:36→19:06)
[2019-09-19] MEDS: SODIUM CHLORIDE FLUSH 0.9% 10 ML SYRINGE IVP SCH ×3 (00:37→17:24)
[2019-09-19] MEDS: LORazepam 0.5 MG TABLET PO PRN (04:31)
[2019-09-19] MEDS: HYDROmorphone 1 MG/ML CARPUJECT IVP PRN ×5 (04:31→20:27)
[2019-09-19 05:46] LABS: BASOPHILS % (AUTO) 0.4 %; EOSINOPHILS % (AUTO) 1.8 %; HGB - HEMOGLOBIN 14.9 g/dL (14.0-18.0); LYMPHOCYTES % (AUTO) 4.4 %; MEAN CORPUSCULAR HEMOGLOBIN 31.4 pg (27.0-31.0); MEAN CORPUSCULAR HGB CONC 34.3 g/dL (32.0-36.0); MEAN CORPUSCULAR VOLUME 91.6 fL (80.0-94.0); MEAN PLATELET VOLUME 9.9 fL (7.4-11.4); MONOCYTES % (AUTO) 10.3 %; NEUTROPHILS % (AUTO) 82.4 %; PLT - PLATELET COUNT 257 10^3/uL (130-450); RED BLOOD COUNT 4.75 10^6/uL (4.70-6.10); RED CELL DISTRIBUTION WIDTH 13.6 % (12.0-15.0); WHITE BLOOD COUNT 19.1 x10^3/uL (4.8-10.8)
[2019-09-19 05:53] LABS: ABNORMAL LYMPHS % (MANUAL) 0 %
[2019-09-19 06:09] LABS: ALBUMIN/GLOBULIN RATIO 0.9 (1.0-2.2); BILIRUBIN,TOTAL 0.7 mg/dL (0.2-1.0); CALCIUM 8.1 mg/dL (8.5-10.3); CREATININE 0.7 mg/dL (0.6-1.2); CRP - C-REACTIVE PROTEIN 14.1 mg/dL (0-1.0); MAGNESIUM 2.1 mg/dL (1.7-2.8); TOTAL PROTEIN 6.2 g/dL (6.7-8.2)
[2019-09-19 06:13] LABS: BAND NEUTROPHILS % (MANUAL) 11 %; DIFFERENTIAL COMMENT MANUAL DIFFERENTIAL; EOSINOPHILS # (MANUAL) 0.4 10^3/uL (0-0.7); LYMPHOCYTES # (MANUAL) 1.1 10^3/uL (1.5-3.5); LYMPHOCYTES % (MANUAL) 6 %; MONOCYTES # (MANUAL) 1.5 10^3/uL (0.0-1.0); PLATELET ESTIMATE, MANUAL NORMAL (130-450,000) (NORMAL); RBC MORPHOLOGY (MULTIPLE) NORMAL APPEARANCE (NORMAL)
[2019-09-19] MEDS: PANTOPRAZOLE 40 MG TABLET PO SCH (06:43)
--- NOTE | 2019-09-19 08:06 | PROVIDER PROGRESS NOTE ---
Subjective - Prog Note Date Prog Note Date: 09/19/19 - Subjective Subjective: he is resting comfortably on his left side Objective - Vital Signs/Intake & Output Vital Signs: Vital Signs x48h Temp Pulse Resp BP Pulse Ox 09/19/19 07:48 39.7 C H 97 20 128/78 96 09/19/19 04:13 36.9 C 82 20 127/99 H 100 Intake & Output: Intake & Output 09/16/19 09/17/19 09/18/19 09/19/19 23:59 23:59 23:59 23:59 Intake Total 4410.000 548.333 Output Total 1275 350 Balance 3135.000 198.333 - Objective General Appearance: positive: No acute distress, Other (sleeping comfortably) - Lab Results Fish Bones: 09/19/19 05:23 09/19/19 05:23 Other Labs: Lab Results x24hrs 09/19/19 09/19/19 09/18/19 Range/Units 05:23 05:23 22:30 WBC 19.1 H (4.8-10.8) x10^3/uL RBC 4.75 (4.70-6.10) 10^6/uL Hgb 14.9 (14.0-18.0) g/dL Hct 43.5 (42.0-52.0) % MCV 91.6 (80.0-94.0) fL MCH 31.4 H (27.0-31.0) pg MCHC 34.3 (32.0-36.0) g/dL RDW 13.6 (12.0-15.0) % Plt Count 257 (130-450) 10^3/uL MPV 9.9 (7.4-11.4) fL Neut # (Auto) Not Reportable Lymph # (Auto) Not Reportable [place] # (Auto) Not Reportable Eos # (Auto) Not Reportable Baso # (Auto) Not Reportable Absolute Nucleated RBC Not Reportable Total Counted 100 Band Neuts % (Manual) 11 H (0 - 10) % Reactive Lymphs % (Man) % Abnorm Lymph % (Manual) 0 % Nucleated RBC % Not Reportable Neutrophils # (Manual) 16.0 H (1.5-6.6) 10^3/uL Lymphocytes # (Manual) 1.1 L (1.5-3.5) 10^3/uL Monocytes # (Manual) 1.5 H (0.0-1.0) 10^3/uL Eosinophils # (Manual) 0.4 (0-0.7) 10^3/uL Basophils # (Manual) 0.0 (0-0.1) 10^3/uL Differential Comment MANUAL DIFFERENTIAL Platelet Estimate NORMAL (130-450,000) (NORMAL) RBC Morph Micro Appear NORMAL APPEARANCE (NORMAL) Sodium 136 (135-145) mmol/L Potassium 3.9 (3.5-5.0) mmol/L Chloride 107 (101-111) mmol/L Carbon Dioxide 22 (21-32) mmol/L Anion Gap 7.0 (6-13) BUN 9 (6-20) mg/dL Creatinine 0.7 (0.6-1.2) mg/dL Estimated GFR (MDRD) 120 (>89) Glucose 115 H (70-100) mg/dL Lactic Acid (0.5-2.2) mmol/L Calcium 8.1 L (8.5-10.3) mg/dL Magnesium 2.1 (1.7-2.8) mg/dL Total Bilirubin 0.7 (0.2-1.0) mg/dL AST 27 (10-42) IU/L ALT 23 (10-60) IU/L Alkaline Phosphatase 71 (42-121) IU/L C-Reactive Protein 14.1 H (0-1.0) mg/dL Total Protein 6.2 L (6.7-8.2) g/dL Albumin 3.0 L (3.2-5.5) g/dL Globulin 3.2 (2.1-4.2) g/dL Albumin/Globulin Ratio 0.9 L (1.0-2.2) Lipase (22-51) U/L Urine Opiates Screen POSITIVE H (NEGATIVE) Ur Oxycodone Screen NEGATIVE (NEGATIVE) Urine Methadone Screen NEGATIVE (NEGATIVE) Ur Propoxyphene Screen NEGATIVE (NEGATIVE) Ur Barbiturates Screen NEGATIVE (NEGATIVE) Ur Tricyclics Screen NEGATIVE (NEGATIVE) Ur Phencyclidine Scrn NEGATIVE (NEGATIVE) Ur Amphetamine Screen POSITIVE H (NEGATIVE) U Methamphetamines Scrn POSITIVE H (NEGATIVE) U Benzodiazepines Scrn NEGATIVE (NEGATIVE) Urine Cocaine Screen NEGATIVE (NEGATIVE) U Cannabinoids Screen NEGATIVE (NEGATIVE) Ethyl Alcohol mg/dL 09/18/19 09/18/19 09/18/19 Range/Units 08:45 08:45 08:45 WBC (4.8-10.8) x10^3/uL RBC (4.70-6.10) 10^6/uL Hgb (14.0-18.0) g/dL Hct (42.0-52.0) % MCV (80.0-94.0) fL MCH (27.0-31.0) pg MCHC (32.0-36.0) g/dL RDW (12.0-15.0) % Plt Count (130-450) 10^3/uL MPV (7.4-11.4) fL Neut # (Auto) Lymph # (Auto) [place] # (Auto) Eos # (Auto) Baso # (Auto) Absolute Nucleated RBC Total Counted Band Neuts % (Manual) (0 - 10) % Reactive Lymphs % (Man) % Abnorm Lymph % (Manual) % Nucleated RBC % Neutrophils # (Manual) (1.5-6.6) 10^3/uL Lymphocytes # (Manual) (1.5-3.5) 10^3/uL Monocytes # (Manual) (0.0-1.0) 10^3/uL Eosinophils # (Manual) (0-0.7) 10^3/uL Basophils # (Manual) (0-0.1) 10^3/uL Differential Comment Platelet Estimate (NORMAL) RBC Morph Micro Appear (NORMAL) Sodium 134 L (135-145) mmol/L Potassium 3.5 (3.5-5.0) mmol/L Chloride 99 L (101-111) mmol/L Carbon Dioxide 23 (21-32) mmol/L Anion Gap 12.0 (6-13) BUN 11 (6-20) mg/dL Creatinine 0.8 (0.6-1.2) mg/dL Estimated GFR (MDRD) 103 (>89) Glucose 116 H (70-100) mg/dL Lactic Acid 1.6 (0.5-2.2) mmol/L Calcium 8.8 (8.5-10.3) mg/dL Magnesium (1.7-2.8) mg/dL Total Bilirubin 1.3 H (0.2-1.0) mg/dL AST 28 (10-42) IU/L ALT 26 (10-60) IU/L Alkaline Phosphatase 74 (42-121) IU/L C-Reactive Protein 14.9 H (0-1.0) mg/dL Total Protein 7.1 (6.7-8.2) g/dL Albumin 3.5 (3.2-5.5) g/dL Globulin 3.6 (2.1-4.2) g/dL Albumin/Globulin Ratio 1.0 (1.0-2.2) Lipase 26 (22-51) U/L Urine Opiates Screen (NEGATIVE) Ur Oxycodone Screen (NEGATIVE) Urine Methadone Screen (NEGATIVE) Ur Propoxyphene Screen (NEGATIVE) Ur Barbiturates Screen (NEGATIVE) Ur Tricyclics Screen (NEGATIVE) Ur Phencyclidine Scrn (NEGATIVE) Ur Amphetamine Screen (NEGATIVE) U Methamphetamines Scrn (NEGATIVE) U Benzodiazepines Scrn (NEGATIVE) Urine Cocaine Screen (NEGATIVE) U Cannabinoids Screen (NEGATIVE) Ethyl Alcohol < 5.0 mg/dL 09/18/19 Range/Units 08:45 WBC 13.6 H (4.8-10.8) x10^3/uL RBC 5.32 (4.70-6.10) 10^6/uL Hgb 16.2 (14.0-18.0) g/dL Hct 46.6 (42.0-52.0) % MCV 87.6 (80.0-94.0) fL MCH 30.5 (27.0-31.0) pg MCHC 34.8 (32.0-36.0) g/dL RDW 13.2 (12.0-15.0) % Plt Count 286 (130-450) 10^3/uL MPV 10.1 (7.4-11.4) fL Neut # (Auto) Not Reportable Lymph # (Auto) Not Reportable [place] # (Auto) Not Reportable Eos # (Auto) Not Reportable Baso # (Auto) Not Reportable Absolute Nucleated RBC Not Reportable Total Counted 100 Band Neuts % (Manual) 4 (0 - 10) % Reactive Lymphs % (Man) 1 % Abnorm Lymph % (Manual) 0 % Nucleated RBC % Not Reportable Neutrophils # (Manual) 11.2 H (1.5-6.6) 10^3/uL Lymphocytes # (Manual) 1.6 (1.5-3.5) 10^3/uL Monocytes # (Manual) 0.7 (0.0-1.0) 10^3/uL Eosinophils # (Manual) 0.1 (0-0.7) 10^3/uL Basophils # (Manual) 0.0 (0-0.1) 10^3/uL Differential Comment MANUAL DIFFERENTIAL Platelet Estimate (NORMAL) RBC Morph Micro Appear (NORMAL) Sodium (135-145) mmol/L Potassium (3.5-5.0) mmol/L Chloride (101-111) mmol/L Carbon Dioxide (21-32) mmol/L Anion Gap (6-13) BUN (6-20) mg/dL Creatinine (0.6-1.2) mg/dL Estimated GFR (MDRD) (>89) Glucose (70-100) mg/dL Lactic Acid (0.5-2.2) mmol/L Calcium (8.5-10.3) mg/dL Magnesium (1.7-2.8) mg/dL Total Bilirubin (0.2-1.0) mg/dL AST (10-42) IU/L ALT (10-60) IU/L Alkaline Phosphatase (42-121) IU/L C-Reactive Protein (0-1.0) mg/dL Total Protein (6.7-8.2) g/dL Albumin (3.2-5.5) g/dL Globulin (2.1-4.2) g/dL Albumin/Globulin Ratio (1.0-2.2) Lipase (22-51) U/L Urine Opiates Screen (NEGATIVE) Ur Oxycodone Screen (NEGATIVE) Urine Methadone Screen (NEGATIVE) Ur Propoxyphene Screen (NEGATIVE) Ur Barbiturates Screen (NEGATIVE) Ur Tricyclics Screen (NEGATIVE) Ur Phencyclidine Scrn (NEGATIVE) Ur Amphetamine Screen (NEGATIVE) U Methamphetamines Scrn (NEGATIVE) U Benzodiazepines Scrn (NEGATIVE) Urine Cocaine Screen (NEGATIVE) U Cannabinoids Screen (NEGATIVE) Ethyl Alcohol mg/dL Sepsis Event Note (H) - Evaluation Current Stage of Sepsis: Sepsis Possible source of Sepsis: positive: Skin/soft tissue - Sepsis Criteria Sepsis Criteria: Recorded Temperature greater than 38.3C or Less than 36C, Recorded Heart Rate greater than 90 bpm, WBC count greater than 10% bands, WBC count greater than 12,000 or less than 4000 Assessment/Plan - Problem List (1) Inflammation Impression: He has inflammation, swelling, edema, fever following IM naltrexone injection. These are all potential side effects of the injection. Plan I and D and exploration to rule out deep soft tissue infection.
[2019-09-19] MEDS: DOCUSATE SODIUM 250 MG CAPSULE PO SCH (08:26)
[2019-09-19] MEDS: polyethylene glycoL 3350 17 GM PACKET PO SCH (08:26)
[2019-09-19] MEDS: NICOTINE 14 MG PATCH TOP SCH (08:26)
[2019-09-19] MEDS: CEFEPIME 2 GM in SODIUM CHLORIDE 0.9% MINIBAG 100 ML IV SCH ×2 (08:28→21:05)
[2019-09-19] MEDS: KETOROLAC 30 MG/ML VIAL IVP PRN ×2 (08:29→21:58)
[2019-09-19] MEDS: ENOXAPARIN 40 MG/0.4 ML SYRINGE SUBQ SCH (08:29)
[2019-09-19] MEDS: ACETAMINOPHEN 325 MG TABLET PO PRN ×2 (08:30→20:28)
[2019-09-19] MEDS: VANCOMYCIN INJ 1 GM, VANCOMYCIN INJ 250 MG in SODIUM CHLORIDE 0.9% 250 ML IV SCH ×2 (10:09→21:58)
--- NOTE | 2019-09-19 10:22 | ANESTHESIA ---
Pre-Anesthesia VS, & Labs - Diagnosis Diagnosis right gluteus muscle swelling and pain 1 week after naltrexone injection. He has mild temperature and mild elevation in his wbc of 13. No air in his soft tissues. No systemic illness. No cellulitis or crepitance. - Procedure I&D right buttock Vital Signs: Temp Pulse Resp BP Pulse Ox 39.7 C H 97 20 128/78 96 09/19/19 07:48 09/19/19 07:48 09/19/19 07:48 09/19/19 07:48 09/19/19 07:48 Height 5 ft 9 in Weight (kg) 84 kg Body Mass Index 27.3 - NPO >8 hours - Lab Results Current Lab Results: Laboratory Tests 09/19/19 05:44: Total Creatine Kinase 140 09/19/19 05:23: Sodium 136, Potassium 3.9, Chloride 107, Carbon Dioxide 22, Anion Gap 7.0, BUN 9, Creatinine 0.7, Estimated GFR (MDRD) 120, Glucose 115 H, Calcium 8.1 L, Magnesium 2.1, Total Bilirubin 0.7, AST 27, ALT 23, Alkaline Phosphatase 71, C-Reactive Protein 14.1 H, Total Protein 6.2 L, Albumin 3.0 L, Globulin 3.2, Albumin/Globulin Ratio 0.9 L 09/19/19 05:23: WBC 19.1 H, RBC 4.75, Hgb 14.9, Hct 43.5, MCV 91.6, MCH 31.4 H, MCHC 34.3, RDW 13.6, Plt Count 257, MPV 9.9, Neut # (Auto) Not Reportable, Lymph # (Auto) Not Reportable, [place] # (Auto) Not Reportable, Eos # (Auto) Not Reportable, Baso # (Auto) Not Reportable, Absolute Nucleated RBC Not Reportable, Total Counted 100, Band Neuts % (Manual) 11 H, Abnorm Lymph % (Manual) 0, Nucleated RBC % Not Reportable, Neutrophils # (Manual) 16.0 H, Lymphocytes # (Manual) 1.1 L, Monocytes # (Manual) 1.5 H, Eosinophils # (Manual) 0.4, Basophils # (Manual) 0.0, Differential Comment MANUAL DIFFERENTIAL, Platelet Estimate NORMAL (130-450,000), RBC Morph Micro Appear NORMAL APPEARANCE 09/18/19 22:30: Urine Opiates Screen POSITIVE H, Ur Oxycodone Screen NEGATIVE, Urine Methadone Screen NEGATIVE, Ur Propoxyphene Screen NEGATIVE, Ur Barbiturates Screen NEGATIVE, Ur Tricyclics Screen NEGATIVE, Ur Phencyclidine Scrn NEGATIVE, Ur Amphetamine Screen POSITIVE H, U Methamphetamines Scrn POSITIVE H, U Benzodiazepines Scrn NEGATIVE, Urine Cocaine Screen NEGATIVE, U Cannabinoids Screen NEGATIVE 09/18/19 08:45: C-Reactive Protein 14.9 H 09/18/19 08:45: Lactic Acid 1.6 09/18/19 08:45: Sodium 134 L, Potassium 3.5, Chloride 99 L, Carbon Dioxide 23, Anion Gap 12.0, BUN 11, Creatinine 0.8, Estimated GFR (MDRD) 103, Glucose 116 H, Calcium 8.8, Total Bilirubin 1.3 H, AST 28, ALT 26, Alkaline Phosphatase 74, Total Protein 7.1, Albumin 3.5, Globulin 3.6, Albumin/Globulin Ratio 1.0, Lipase 26, Ethyl Alcohol < 5.0 09/18/19 08:45: WBC 13.6 H, RBC 5.32, Hgb 16.2, Hct 46.6, MCV 87.6, MCH 30.5, MCHC 34.8, RDW 13.2, Plt Count 286, MPV 10.1, Neut # (Auto) Not Reportable, Lymph # (Auto) Not Reportable, [place] # (Auto) Not Reportable, Eos # (Auto) Not Reportable, Baso # (Auto) Not Reportable, Absolute Nucleated RBC Not Reportable, Total Counted 100, Band Neuts % (Manual) 4, Reactive Lymphs % (Man) 1, Abnorm Lymph % (Manual) 0, Nucleated RBC % Not Reportable, Neutrophils # (Manual) 11.2 H, Lymphocytes # (Manual) 1.6, Monocytes # (Manual) 0.7, Eosinophils # (Manual) 0.1, Basophils # (Manual) 0.0, Differential Comment MANUAL DIFFERENTIAL Fish Bones: 09/19/19 05:23 09/19/19 05:23 Home Medications and Allergies Active Medications Acetaminophen (Tylenol) 650 mg PO Q4HR PRN PRN Reason: Pain 1 to 4 Last Admin: 09/19/19 08:30 Dose: 650 mg Documented by: Docusate Sodium (Colace 250mg Capsule) 250 - 500 mg PO DAILY [facility] Last Admin: 09/19/19 08:26 Dose: 500 mg Documented by: Enoxaparin Sodium (Lovenox) 40 mg SUBQ DAILY [facility] Last Admin: 09/19/19 08:29 Dose: 40 mg Documented by: Hydromorphone HCl (Dilaudid Inj Carp) 2 mg IVP Q2HR PRN PRN Reason: PAIN Last Admin: 09/19/19 08:30 Dose: 2 mg Documented by: Sodium Chloride (Normal Saline 0.9%) 1,000 mls @ 100 mls/hr IV .Q10H [facility] Last Admin: 09/19/19 00:36 Dose: 100 mls/hr Documented by: Cefepime HCl 2 gm/ Sodium (Chloride) 100 mls @ 200 mls/hr IV BID [facility] Last Infusion: 09/19/19 10:12 Dose: Infused Documented by: Vancomycin HCl 1 gm/Vancomycin HCl 250 mg/ Sodium Chloride 250 mls @ 166.667 mls/hr IV Q12H [facility] Last Admin: 09/19/19 10:09 Dose: 167 mls/hr Documented by: Ketorolac Tromethamine (Toradol Inj (30mg)) 30 mg IVP Q6HR PRN PRN Reason: PAIN Stop: 09/23/19 20:41 Last Admin: 09/19/19 08:29 Dose: 30 mg Documented by: Lorazepam (Ativan) 0.5 mg PO Q8H PRN PRN Reason: Anxiety Last Admin: 09/19/19 04:31 Dose: 0.5 mg Documented by: Nicotine (Nicoderm) 1 patch TOP DAILY [facility] Last Admin: 09/19/19 08:26 Dose: 1 patch Documented by: Ondansetron HCl (Zofran Inj) 4 mg IVP Q6HR PRN PRN Reason: Nausea / Vomiting Pantoprazole Sodium (Protonix) 40 mg PO QDAC [facility] Last Admin: 09/19/19 06:43 Dose: Not Given Documented by: Polyethylene Glycol (Miralax) 17 gm PO DAILY [facility] Last Admin: 09/19/19 08:26 Dose: Not Given Documented by: Sodium Chloride (Normal Saline Flush 0.9%) 10 ml IVP PRN PRN PRN Reason: NEEDED PER PROVIDER ORDERS Last Admin: 09/18/19 19:29 Dose: 10 ml Documented by: Sodium Chloride (Normal Saline Flush 0.9%) 10 ml IVP 0100,0900,1700 [facility] Last Admin: 09/19/19 08:28 Dose: Not Given Documented by: Zolpidem Tartrate (Ambien) 5 mg PO QPM PRN PRN Reason: Insomnia Last Admin: 09/18/19 23:44 Dose: 5 mg Documented by: Losartan Potassium 50 mg PO DAILY 12/02/13 Allergies/Adverse Reactions: Allergies Allergy/AdvReac Type Severity Reaction Status Date / Time codeine Allergy Intermediate Hives Verified 05/30/18 13:04 Anes History & Medical History - Anesthetic History Anesthesia Complications: reports: No previous complications - Medical History Cardiovascular: reports: Hypertension Pulmonary: reports: None Gastrointestinal: reports: None Urinary: reports: None Neuro: reports: Head injury Musculoskeletal: reports: Chronic back pain Endocrine/Autoimmune: reports: None Blood Disorders: reports: None Skin: reports: Other (History of oseguera with skin grafts) Smoking Status: Current every day smoker Psychosocial: reports: Amphetamine (Last meth use 09/18/2019), Other (Takes vivitrol IM for opioid abuse/detox. Last dose was on 09/11/2019) - Surgical History General: Hiatal hernia repair Orthopedic: Carpal Tunnel surgery, Other (foot surgery) Dermatologic: Skin grafts (for oseguera) Exam General: Alert, Oriented x3 Dental: Dentures full Upper, Poor dentition Mouth Openin Fingerbreadth Neck Mobility: Normal Mallampati classification: II Thyromental Distance: 4-6 cm Respiratory: Lungs clear, Normal breath sounds, No respiratory distress, No accessory muscle use Cardiovascular: Regular rate, Normal S1, Normal S2, No murmurs Mental/Cognitive Status: Alert/Oriented X3, Normal for patient Plan Anesthesia Type: General Consent for Procedure(s) Verified and Reviewed: Yes Code Status: Attempt Resuscitation ASA classification: 2-Mild systemic disease Is this case an emergency?: No
--- NOTE | 2019-09-19 11:27 | PROVIDER PROGRESS NOTE ---
Assessment/Plan - Problem List (1) Sepsis Assessment/Plan: 09/18 Patient Still has spotted fever, patient still reporting pain, blood culture was negative for bacteremia. patient CAT scan and ultrasound did not show fluid collection. because clinically patient did not improved, still have spotted fever, WBC go up, surgeon will try I&D, planning on this afternoon. 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 There is swollen and tenderness. Blood culture is pending, will continue cefepime and vancomycin (3) HTN (hypertension) Conclusion/Plan: Patient has history of hypertension, we will hold blood pressure medication Cozaar, closely monitor patient and precaution of sepsis hypotension (4) Drug abuse Conclusion/Plan: 09/18, patient's UDS is positive for methamphetamine and amphentermine, discussed with patient for quitting drug abuse, continue Ativan PRN Patient has a history of drug abuse, he will report he still use methamphetamine, we will check drug screen, and it is pending, we will add ativan for anxiety and precaution of drug withdrawal. - Current Meds Current Meds: Current Medications Generic Name Dose Route Start Last Admin Trade Name Freq PRN Reason Stop Dose Admin Acetaminophen 650 mg 09/18/19 10:40 09/19/19 08:30 Tylenol PO 650 mg Q4HR PRN Administration Pain 1 to 4 Docusate Sodium 250 - 500 mg 09/19/19 09:00 09/19/19 08:26 Colace 250mg Capsule PO 500 mg DAILY [facility] Administration Enoxaparin Sodium 40 mg 09/19/19 09:00 09/19/19 08:29 Lovenox SUBQ 40 mg DAILY [facility] Administration Hydromorphone HCl 2 mg 09/18/19 20:42 09/19/19 10:34 Dilaudid Inj Carp IVP 2 mg Q2HR PRN Administration PAIN Sodium Chloride 1,000 mls @ 100 mls/hr 09/18/19 12:00 09/19/19 00:36 Normal Saline 0.9% IV 100 mls/hr .Q10H [facility] Administration Cefepime HCl 2 gm/ Sodium 100 mls @ 200 mls/hr 09/18/19 21:00 09/19/19 10:12 Chloride IV Infused BID [facility] Infusion Vancomycin HCl 1 gm/ 250 mls @ 166.667 mls/hr 09/18/19 21:00 09/19/19 10:09 Vancomycin HCl 250 mg/ Sodium IV 167 mls/hr Chloride Q12H [facility] Administration Ketorolac Tromethamine 30 mg 09/18/19 20:42 09/19/19 08:29 Toradol Inj (30mg) IVP 09/23/19 20:41 30 mg Q6HR PRN Administration PAIN Lorazepam 0.5 mg 09/18/19 15:58 09/19/19 04:31 Ativan PO 0.5 mg Q8H PRN Administration Anxiety Nicotine 1 patch 09/18/19 13:00 09/19/19 08:26 Nicoderm TOP 1 patch DAILY [facility] Administration Pantoprazole Sodium 40 mg 09/19/19 07:00 09/19/19 06:43 Protonix PO Not Given QDAC [facility] Polyethylene Glycol 17 gm 09/19/19 09:00 09/19/19 08:26 Miralax PO Not Given DAILY [facility] Sodium Chloride 10 ml 09/18/19 10:40 09/18/19 19:29 Normal Saline Flush 0.9% IVP 10 ml PRN PRN Administration NEEDED PER PROVIDER ORDERS Sodium Chloride 10 ml 09/18/19 17:00 09/19/19 08:28 Normal Saline Flush 0.9% IVP Not Given 0100,0900,1700 [facility] Zolpidem Tartrate 5 mg 09/18/19 10:40 09/18/19 23:44 Ambien PO 5 mg QPM PRN Administration Insomnia - Lab Result Fish Bone Diagrams: 09/19/19 05:23 09/19/19 05:23 - Additional Planning My Orders: My Active Orders 09/18/19 10:40 Activity Orders [RC] Q2HR IO [RC] IOSHIFT Initiate Bowel Care Protocol [RC] .protocol Initiate Line Care Protocol [RC] QSHIFT Initiate Personal Care Protoco [RC] .protocol Oxygen Therapy [RC] Routine Telemetry (24 Hour) [RC] Q4HR Vital Signs [RC] 0800,1600,0000 Acetaminophen [Tylenol] 650 mg PO Q4HR PRN Ondansetron Inj [Zofran Inj] 4 mg IVP Q6HR PRN Sodium Chloride Flush 0.9% [Normal Saline Flush 0.9%] 10 ml IVP PRN PRN Zolpidem [Ambien] 5 mg PO QPM PRN Code Status [OTHERS] Routine Condition of Patient [OTHERS] Routine DVT Prophylaxis [OTHERS] Routine 09/18/19 10:41 IV Insert [RC] .ONCE 09/18/19 10:42 SCDs [RC] QSHIFT General Surgery Consult [CONS] Routine 09/18/19 12:00 Sodium Chloride 0.9% [Normal Saline 0.9%] 1,000 ml IV 100 mls/hr 09/18/19 13:00 Nicotine 14 mg Patch [Nicoderm] 1 patch TOP DAILY 09/18/19 15:58 LORazepam [Ativan] 0.5 mg PO Q8H PRN 09/18/19 17:00 Sodium Chloride Flush 0.9% [Normal Saline Flush 0.9%] 10 ml IVP 0100,0900,1700 09/18/19 21:00 Cefepime 2 gm Sodium Chloride 0.9% Minibag [Normal Saline 0.9% Minibag] 100 ml IV BID Vancomycin Inj [Vancomycin] 1 gm Vancomycin Inj 250 mg Sodium Chloride 0.9% [Normal Saline 0.9%] 250 ml IV Q12H 09/19/19 07:00 Pantoprazole [Protonix] 40 mg PO QDAC 09/19/19 09:00 Docusate Sodium 250Mg Capsule [Colace 250Mg Capsule] 250 - 500 mg PO DAILY Enoxaparin [Lovenox] 40 mg SUBQ DAILY polyethylene glycoL 3350 [Miralax] 17 gm PO DAILY 09/20/19 05:00 CBC - COMP BLD CT W/AUTO DIFF [HEME] DAILYLAB CK- CREATINE KINASE [CHEM] DAILYLAB CMP [COMPREHENSIVE METABOLIC PANEL] [CHEM] DAILYLAB CRP - C-REACTIVE PROTEIN [CHEM] DAILYLAB 09/21/19 05:00 CBC - COMP BLD CT W/AUTO DIFF [HEME] DAILYLAB CK- CREATINE KINASE [CHEM] DAILYLAB CMP [COMPREHENSIVE METABOLIC PANEL] [CHEM] DAILYLAB CRP - C-REACTIVE PROTEIN [CHEM] DAILYLAB 09/22/19 05:00 CBC - COMP BLD CT W/AUTO DIFF [HEME] DAILYLAB CK- CREATINE KINASE [CHEM] DAILYLAB CMP [COMPREHENSIVE METABOLIC PANEL] [CHEM] DAILYLAB CRP - C-REACTIVE PROTEIN [CHEM] DAILYLAB 09/23/19 05:00 CK- CREATINE KINASE [CHEM] DAILYLAB Subjective - Subjective Patient Reports: Pain Objective Vital Signs: Vital Signs - 24 hr 09/18/19 09/18/19 09/18/19 11:21 12:30 16:00 Temperature 36.7 C 36.8 C 37.5 C Heart Rate 97 Heart Rate [ 86 Brachial] Heart Rate [ 90 Monitoring electrodes] Respiratory 16 16 16 Rate Blood Pressure 133/77 H Blood Pressure 101/60 132/70 H [Right Brachial artery] O2 Saturation 99 98 98 09/18/19 09/19/19 09/19/19 20:22 00:00 04:13 Temperature 39.3 C H 36.9 C 36.9 C Heart Rate Heart Rate [ 97 91 82 Brachial] Heart Rate [ Monitoring electrodes] Respiratory 16 18 20 Rate Blood Pressure Blood Pressure 133/71 H 125/62 127/99 H [Right Brachial artery] O2 Saturation 98 100 100 09/19/19 07:48 Temperature 39.7 C H Heart Rate Heart Rate [ 97 Brachial] Heart Rate [ Monitoring electrodes] Respiratory 20 Rate Blood Pressure Blood Pressure 128/78 [Right Brachial artery] O2 Saturation 96 Oxygen O2 Source Room air I&O (Last 24 Hrs): Intake and Output Totals x24h 09/17/19 09/18/19 09/19/19 23:59 23:59 23:59 Intake Total 4410.000 648.333 Output Total 1275 350 Balance 3135.000 298.333 General: Alert, Oriented x3, Mild distress HEENT: Atraumatic Neck: Supple Lymphatic: no adenopathy Neuro: Alert, Non Focal, Oriented Times 3 Cardiovascular: Regular rate, Normal S1, Normal S2 Respiratory: Chest non-tender, No respiratory distress, Breath sounds nml Abdomen: Normal bowel sounds, Soft, No tenderness Extremities: Normal pulses Comments/Notes: right buttock is hog tender, but swelling is slightly reduced comparing with yesterday, skin is still normal color. pt report pain when I palpitated - Results Results: Laboratory Results WBC 19.1 x10^3/uL (4.8-10.8) H 09/19/19 05:23 RBC 4.75 10^6/uL (4.70-6.10) 09/19/19 05:23 Hgb 14.9 g/dL (14.0-18.0) 09/19/19 05:23 Hct 43.5 % (42.0-52.0) 09/19/19 05:23 MCV 91.6 fL (80.0-94.0) 09/19/19 05:23 MCH 31.4 pg (27.0-31.0) H 09/19/19 05:23 MCHC 34.3 g/dL (32.0-36.0) 09/19/19 05:23 RDW 13.6 % (12.0-15.0) 09/19/19 05:23 Plt Count 257 10^3/uL (130-450) 09/19/19 05:23 MPV 9.9 fL (7.4-11.4) 09/19/19 05:23 Neut # (Auto) Not Reportable 09/19/19 05:23 Lymph # (Auto) Not Reportable 09/19/19 05:23 [place] # (Auto) Not Reportable 09/19/19 05:23 Eos # (Auto) Not Reportable 09/19/19 05:23 Baso # (Auto) Not Reportable 09/19/19 05:23 Absolute Nucleated RBC Not Reportable 09/19/19 05:23 Total Counted 100 09/19/19 05:23 Band Neuts % (Manual) 11 % (0-10) H 09/19/19 05:23 Reactive Lymphs % (Man) 1 % 09/18/19 08:45 Abnorm Lymph % (Manual) 0 % 09/19/19 05:23 Nucleated RBC % Not Reportable 09/19/19 05:23 Neutrophils # (Manual) 16.0 10^3/uL (1.5-6.6) H 09/19/19 05:23 Lymphocytes # (Manual) 1.1 10^3/uL (1.5-3.5) L 09/19/19 05:23 Monocytes # (Manual) 1.5 10^3/uL (0.0-1.0) H 09/19/19 05:23 Eosinophils # (Manual) 0.4 10^3/uL (0-0.7) 09/19/19 05:23 Basophils # (Manual) 0.0 10^3/uL (0-0.1) 09/19/19 05:23 Differential Comment MANUAL DIFFERENTIAL 09/19/19 05:23 Platelet Estimate NORMAL (130-450,000) (NORMAL) 09/19/19 05:23 RBC Morph Micro Appear NORMAL APPEARANCE (NORMAL) 09/19/19 05:23 Sodium 136 mmol/L (135-145) 09/19/19 05:23 Potassium 3.9 mmol/L (3.5-5.0) 09/19/19 05:23 Chloride 107 mmol/L (101-111) 09/19/19 05:23 Carbon Dioxide 22 mmol/L (21-32) 09/19/19 05:23 Anion Gap 7.0 (6-13) 09/19/19 05:23 BUN 9 mg/dL (6-20) 09/19/19 05:23 Creatinine 0.7 mg/dL (0.6-1.2) 09/19/19 05:23 Estimated GFR (MDRD) 120 (>89) 09/19/19 05:23 Glucose 115 mg/dL (70-100) H 09/19/19 05:23 Lactic Acid 1.6 mmol/L (0.5-2.2) 09/18/19 08:45 Calcium 8.1 mg/dL (8.5-10.3) L 09/19/19 05:23 Magnesium 2.1 mg/dL (1.7-2.8) 09/19/19 05:23 Total Bilirubin 0.7 mg/dL (0.2-1.0) 09/19/19 05:23 AST 27 IU/L (10-42) 09/19/19 05:23 ALT 23 IU/L (10-60) 09/19/19 05:23 Alkaline Phosphatase 71 IU/L (42-121) 09/19/19 05:23 Total Creatine Kinase 140 IU/L (22-269) 09/19/19 05:44 C-Reactive Protein 14.1 mg/dL (0-1.0) H 09/19/19 05:23 Total Protein 6.2 g/dL (6.7-8.2) L 09/19/19 05:23 Albumin 3.0 g/dL (3.2-5.5) L 09/19/19 05:23 Globulin 3.2 g/dL (2.1-4.2) 09/19/19 05:23 Albumin/Globulin Ratio 0.9 (1.0-2.2) L 09/19/19 05:23 Lipase 26 U/L (22-51) 09/18/19 08:45 Urine Opiates Screen POSITIVE (NEGATIVE) H 09/18/19 22:30 Ur Oxycodone Screen NEGATIVE (NEGATIVE) 09/18/19 22:30 Urine Methadone Screen NEGATIVE (NEGATIVE) 09/18/19 22:30 Ur Propoxyphene Screen NEGATIVE (NEGATIVE) 09/18/19 22:30 Ur Barbiturates Screen NEGATIVE (NEGATIVE) 09/18/19 22:30 Ur Tricyclics Screen NEGATIVE (NEGATIVE) 09/18/19 22:30 Ur Phencyclidine Scrn NEGATIVE (NEGATIVE) 09/18/19 22:30 Ur Amphetamine Screen POSITIVE (NEGATIVE) H 09/18/19 22:30 U Methamphetamines Scrn POSITIVE (NEGATIVE) H 09/18/19 22:30 U Benzodiazepines Scrn NEGATIVE (NEGATIVE) 09/18/19 22:30 Urine Cocaine Screen NEGATIVE (NEGATIVE) 09/18/19 22:30 U Cannabinoids Screen NEGATIVE (NEGATIVE) 09/18/19 22:30 Ethyl Alcohol < 5.0 mg/dL 09/18/19 08:45 - Procedures Procedures: Procedures OTH & OPEN REPAIR INDIRECT INGUINAL HERNIA W GRFT OR PROSTH (12/03/13) SUPPLEMENT L INGUINAL REGION W SYNTH SUB, PERC ENDO (06/20/16) Sepsis Event Note (H) - Evaluation Current Stage of Sepsis: Sepsis Possible source of Sepsis: positive: Skin/soft tissue - Sepsis Criteria Sepsis Criteria: Recorded Temperature greater than 38.3C or Less than 36C, Recorded Heart Rate greater than 90 bpm, WBC count greater than 10% bands, WBC count greater than 12,000 or less than 4000 ABX Reporting Has patient been on IV antibiotics over the past 48 hours?: Yes Current Medications - Current Medications Current Medications: Active Medications Acetaminophen (Tylenol) 650 mg PO Q4HR PRN PRN Reason: Pain 1 to 4 Last Admin: 09/19/19 08:30 Dose: 650 mg Documented by: Docusate Sodium (Colace 250mg Capsule) 250 - 500 mg PO DAILY [facility] Last Admin: 09/19/19 08:26 Dose: 500 mg Documented by: Enoxaparin Sodium (Lovenox) 40 mg SUBQ DAILY [facility] Last Admin: 09/19/19 08:29 Dose: 40 mg Documented by: Hydromorphone HCl (Dilaudid Inj Carp) 2 mg IVP Q2HR PRN PRN Reason: PAIN Last Admin: 09/19/19 10:34 Dose: 2 mg Documented by: Sodium Chloride (Normal Saline 0.9%) 1,000 mls @ 100 mls/hr IV .Q10H [facility] Last Admin: 09/19/19 00:36 Dose: 100 mls/hr Documented by: Cefepime HCl 2 gm/ Sodium (Chloride) 100 mls @ 200 mls/hr IV BID [facility] Last Infusion: 09/19/19 10:12 Dose: Infused Documented by: Vancomycin HCl 1 gm/Vancomycin HCl 250 mg/ Sodium Chloride 250 mls @ 166.667 mls/hr IV Q12H [facility] Last Admin: 09/19/19 10:09 Dose: 167 mls/hr Documented by: Ketorolac Tromethamine (Toradol Inj (30mg)) 30 mg IVP Q6HR PRN PRN Reason: PAIN Stop: 09/23/19 20:41 Last Admin: 09/19/19 08:29 Dose: 30 mg Documented by: Lorazepam (Ativan) 0.5 mg PO Q8H PRN PRN Reason: Anxiety Last Admin: 09/19/19 04:31 Dose: 0.5 mg Documented by: Nicotine (Nicoderm) 1 patch TOP DAILY [facility] Last Admin: 09/19/19 08:26 Dose: 1 patch Documented by: Ondansetron HCl (Zofran Inj) 4 mg IVP Q6HR PRN PRN Reason: Nausea / Vomiting Pantoprazole Sodium (Protonix) 40 mg PO QDAC [facility] Last Admin: 09/19/19 06:43 Dose: Not Given Documented by: Polyethylene Glycol (Miralax) 17 gm PO DAILY [facility] Last Admin: 09/19/19 08:26 Dose: Not Given Documented by: Sodium Chloride (Normal Saline Flush 0.9%) 10 ml IVP PRN PRN PRN Reason: NEEDED PER PROVIDER ORDERS Last Admin: 09/18/19 19:29 Dose: 10 ml Documented by: Sodium Chloride (Normal Saline Flush 0.9%) 10 ml IVP 0100,0900,1700 [facility] Last Admin: 09/19/19 08:28 Dose: Not Given Documented by: Zolpidem Tartrate (Ambien) 5 mg PO QPM PRN PRN Reason: Insomnia Last Admin: 09/18/19 23:44 Dose: 5 mg Documented by: Losartan Potassium 50 mg PO DAILY 12/02/13
[2019-09-19] MEDS ORDERED: LIDOCAINE 2%-EPI 1:100000 20 ML MDV ONE (12:47)
[2019-09-19] MEDS ORDERED: BUPIVACAINE 0.5% PF 30 ML VIAL ONE (12:47)
[2019-09-19] MEDS ORDERED: BUPIVACAINE 0.25% PF 30 ML VIAL ONE (13:40)
[2019-09-19] MEDS ORDERED: BUPIVACAINE 0.25% PF 30 ML VIAL SUBQ ONE ×2 (13:45)
[2019-09-19] MEDS ORDERED: LACTATED RINGERS 1,000 ML IV ONE (13:46)
[2019-09-19] MEDS ORDERED: ACETAMINOPHEN 1,000 MG/100 ML 100 ML IV ONE (14:13)
--- NOTE | 2019-09-19 14:21 | OPERATIVE REPORT ---
Operative Report - General Admit Date: 09/18/19 Procedure Date: 09/19/19 Planned Procedure: I and D/ exploration deep right buttock inflammation/ abscess Pre-Op Diagnosis: inflammation deep right buttock, possible abscess Procedure Performed: I and D Deep intramuscular right gluteal abscess Post Op Diagnosis: deep intramuscular right gluteal abscess - Procedure Note Primary Surgeon: janeth lizama md Secondary Surgeon: pamella Anesthesia Technique: General LMA Pathology: culture sent Findings: as above Complications: none
[2019-09-19] MEDS ORDERED: KETOROLAC 30 MG/ML VIAL ONE (14:27)
[2019-09-19] MEDS ORDERED: PROPOFOL 200 MG/20 ML VIAL IVP ONE (17:57)
[2019-09-19] MEDS: ZOLPIDEM 5 MG TABLET PO PRN (22:07)
[2019-09-20] MEDS: SODIUM CHLORIDE FLUSH 0.9% 10 ML SYRINGE IVP SCH ×3 (03:40→15:58)
[2019-09-20] MEDS: HYDROmorphone 1 MG/ML CARPUJECT IVP PRN ×3 (05:16→20:45)
[2019-09-20] MEDS: PANTOPRAZOLE 40 MG TABLET PO SCH (06:08)
[2019-09-20] MEDS: SODIUM CHLORIDE 0.9% 1,000 ML IV SCH ×2 (07:14→19:29)
[2019-09-20] MEDS: CEFEPIME 2 GM in SODIUM CHLORIDE 0.9% MINIBAG 100 ML IV SCH ×2 (07:46→21:06)
[2019-09-20] MEDS: polyethylene glycoL 3350 17 GM PACKET PO SCH (08:27)
[2019-09-20] MEDS: DOCUSATE SODIUM 250 MG CAPSULE PO SCH (08:27)
[2019-09-20] MEDS: ENOXAPARIN 40 MG/0.4 ML SYRINGE SUBQ SCH (08:30)
[2019-09-20] MEDS: NICOTINE 14 MG PATCH TOP SCH (08:30)
[2019-09-20] MEDS: VANCOMYCIN INJ 1 GM, VANCOMYCIN INJ 250 MG in SODIUM CHLORIDE 0.9% 250 ML IV SCH ×2 (08:31→20:01)
[2019-09-20 08:46] LABS: BASOPHILS # (AUTO) 0.1 10^3/uL (0.0-0.1); BASOPHILS % (AUTO) 0.4 %; EOSINOPHILS # (AUTO) 0.3 10^3/uL (0.0-0.7); EOSINOPHILS % (AUTO) 2.1 %; HGB - HEMOGLOBIN 13.5 g/dL (14.0-18.0); LYMPHOCYTES % (AUTO) 6.6 %; MEAN CORPUSCULAR HEMOGLOBIN 31.6 pg (27.0-31.0); MEAN CORPUSCULAR HGB CONC 34.3 g/dL (32.0-36.0); MEAN CORPUSCULAR VOLUME 92.3 fL (80.0-94.0); MEAN PLATELET VOLUME 9.8 fL (7.4-11.4); MONOCYTES # (AUTO) 1.6 10^3/uL (0.0-1.0); MONOCYTES % (AUTO) 11.4 %; NEUTROPHILS # (AUTO) 11.4 10^3/uL (1.5-6.6); NEUTROPHILS % (AUTO) 78.7 %; PLT - PLATELET COUNT 238 10^3/uL (130-450); RED BLOOD COUNT 4.27 10^6/uL (4.70-6.10); RED CELL DISTRIBUTION WIDTH 13.8 % (12.0-15.0); WHITE BLOOD COUNT 14.4 x10^3/uL (4.8-10.8)
[2019-09-20 09:08] LABS: ALBUMIN 2.4 g/dL (3.2-5.5); ALBUMIN/GLOBULIN RATIO 0.8 (1.0-2.2); BILIRUBIN,TOTAL 0.4 mg/dL (0.2-1.0); CALCIUM 7.8 mg/dL (8.5-10.3); CREATININE 0.7 mg/dL (0.6-1.2); CRP - C-REACTIVE PROTEIN 19.8 mg/dL (0-1.0); TOTAL PROTEIN 5.5 g/dL (6.7-8.2)
[2019-09-20 09:10] LABS: DIFFERENTIAL COMMENT MANUAL=AUTO DIFF; PLATELET ESTIMATE, MANUAL NORMAL (130-450,000) (NORMAL); PLATELET MORPHOLOGY NORMAL APPEARANCE (NORMAL); RBC MORPHOLOGY (MULTIPLE) NORMAL APPEARANCE (NORMAL)
[2019-09-20] MEDS ORDERED: POTASSIUM CHLORIDE 20 MEQ TABLET PO ONE (09:15)
--- NOTE | 2019-09-20 10:55 | PROVIDER PROGRESS NOTE ---
Assessment/Plan - Problem List (3) HTN (hypertension) Assessment/Plan: 09/19,Patient report his main is a slightly better than yesterday. Patient had I/D down by the surgeon on yesterday. blood work show WBC is reduced 14 from yesterday 19, but the CRP and CK elevated. Patient has no fever on last night but patient temperature still slightly elevated at 37.7 degrees. Wound culture show staph aureus, sensitivity study is still pending but beta lactmase is positive. Blood culture is negative for bacteremia. At this point, we will Continue cefepime and vancomycin, continue pathology laboratory technologist and vital signs monitor, continue intravenous IV fluids. 09/18 Patient Still has spotted fever, patient still reporting pain, blood culture was negative for bacteremia. patient CAT scan and ultrasound did not show fluid collection. because clinically patient did not improved, still have spotted fever, WBC go up, surgeon will try I&D, planning on this afternoon. NPO for procedure, continue intravenous IV follow, continue cefepime and vancomycin, Continue pain control, Continue vital signs and pathology laboratory technologist patient, Continue follow-up with the surgeon, and closely monitor for patient (2) Cellulitis Conclusion/Plan: CAT scan show cellulitis in his right buttock injection site. There is swollen and tenderness. Blood culture is pending, will continue cefepime and vancomycin (3) HTN (hypertension) Conclusion/Plan: Patient has history of hypertension, we will hold blood pressure medication Cozaar, closely monitor patient and precaution of sepsis hypotension (4) Drug abuse Conclusion/Plan: 09/18, patient's UDS is positive for methamphetamine and amphentermine, discussed with patient for quitting drug abuse, continue Ativan PRN Patient has a history of drug abuse, he will report he still use methamphetamine, we will check drug screen, and it is pending, we will add at gretchen for anxiety and precaution of drug withdrawal. - Current Meds Current Meds: Current Medications Generic Name Dose Route Start Last Admin Trade Name Freq PRN Reason Stop Dose Admin Acetaminophen 650 mg 09/18/19 10:40 09/19/19 20:28 Tylenol PO 650 mg Q4HR PRN Administration Pain 1 to 4 Docusate Sodium 250 - 500 mg 09/19/19 09:00 09/20/19 08:27 Colace 250mg Capsule PO 250 mg DAILY DELFINA Administration Enoxaparin Sodium 40 mg 09/19/19 09:00 09/20/19 08:30 Lovenox SUBQ Not Given DAILY DELFINA Hydromorphone HCl 2 mg 09/18/19 20:42 09/20/19 10:26 Dilaudid Inj Carp IVP 2 mg Q2HR PRN Administration PAIN Sodium Chloride 1,000 mls @ 100 mls/hr 09/18/19 12:00 09/20/19 07:14 Normal Saline 0.9% IV 100 mls/hr .Q10H DELFINA Administration Cefepime HCl 2 gm/ Sodium 100 mls @ 200 mls/hr 09/18/19 21:00 09/20/19 08:34 Chloride IV Infused BID DELFINA Infusion Vancomycin HCl 1 gm/ 250 mls @ 166.667 mls/hr 09/18/19 21:00 09/20/19 10:10 Vancomycin HCl 250 mg/ Sodium IV Infused Chloride Q12H DELFINA Infusion Ketorolac Tromethamine 30 mg 09/18/19 20:42 09/19/19 21:58 Toradol Inj (30mg) IVP 09/23/19 20:41 30 mg Q6HR PRN Administration PAIN Lorazepam 0.5 mg 09/18/19 15:58 09/19/19 04:31 Ativan PO 0.5 mg Q8H PRN Administration Anxiety Nicotine 1 patch 09/18/19 13:00 09/20/19 08:30 Nicoderm TOP 1 patch DAILY DELFINA Administration Pantoprazole Sodium 40 mg 09/19/19 07:00 09/20/19 06:08 Protonix PO 40 mg QDAC DELFINA Administration Polyethylene Glycol 17 gm 09/19/19 09:00 09/20/19 08:27 Miralax PO 17 gm DAILY DELFINA Administration Sodium Chloride 10 ml 09/18/19 10:40 09/18/19 19:29 Normal Saline Flush 0.9% IVP 10 ml PRN PRN Administration NEEDED PER PROVIDER ORDERS Sodium Chloride 10 ml 09/18/19 17:00 09/20/19 03:40 Normal Saline Flush 0.9% IVP Not Given 0100,0900,1700 DELFINA Zolpidem Tartrate 5 mg 09/18/19 10:40 09/19/19 22:07 Ambien PO 5 mg QPM PRN Administration Insomnia - Lab Result Fish Bone Diagrams: 09/20/19 08:39 09/20/19 08:39 - Additional Planning My Orders: My Active Orders 09/20/19 16:40 Echo Transthoracic Complete [ECHO] Routine 09/21/19 05:00 CBC - COMP BLD CT W/AUTO DIFF [HEME] DAILYLAB CK- CREATINE KINASE [CHEM] DAILYLAB CMP [COMPREHENSIVE METABOLIC PANEL] [CHEM] DAILYLAB CRP - C-REACTIVE PROTEIN [CHEM] DAILYLAB 09/22/19 05:00 CBC - COMP BLD CT W/AUTO DIFF [HEME] DAILYLAB CK- CREATINE KINASE [CHEM] DAILYLAB CMP [COMPREHENSIVE METABOLIC PANEL] [CHEM] DAILYLAB CRP - C-REACTIVE PROTEIN [CHEM] DAILYLAB 09/23/19 05:00 CK- CREATINE KINASE [CHEM] DAILYLAB Subjective - Subjective Patient Reports: Feeling Better Objective Vital Signs: Vital Signs - 24 hr 09/19/19 09/19/19 09/19/19 11:58 13:57 14:00 Temperature 36.6 C 37.0 C 37.3 C Heart Rate 85 85 Heart Rate [ 80 Brachial] Respiratory 22 16 16 Rate Blood Pressure 121/66 137/77 H Blood Pressure 126/75 [Right Brachial artery] O2 Saturation 97 100 100 09/19/19 09/19/19 09/19/19 14:05 14:10 14:15 Temperature 37.3 C 37.5 C 37.6 C H Heart Rate 85 85 84 Heart Rate [ Brachial] Respiratory 15 16 15 Rate Blood Pressure 88/70 L 121/83 H 119/80 Blood Pressure [Right Brachial artery] O2 Saturation 100 100 100 09/19/19 09/19/19 09/19/19 14:30 14:47 16:21 Temperature 37.6 C H 37.0 C 37 C Heart Rate 91 95 Heart Rate [ 90 Brachial] Respiratory 15 18 18 Rate Blood Pressure 112/68 Blood Pressure 121/59 L [Right Brachial artery] O2 Saturation 98 99 98 09/19/19 09/20/19 09/20/19 20:30 00:00 08:00 Temperature 36.7 C 37.6 C H 37.7 C H Heart Rate Heart Rate [ 88 86 Brachial] Respiratory 18 18 Rate Blood Pressure Blood Pressure 134/76 H 115/76 [Right Brachial artery] O2 Saturation 97 97 Oxygen O2 Source Room air I&O (Last 24 Hrs): Intake and Output Totals x24h 09/18/19 09/19/19 09/20/19 23:59 23:59 23:59 Intake Total 4410.000 4340.667 2773.333 Output Total 1275 2420 1250 Balance 3135.000 3450.464 6549.333 General: Alert, Oriented x3, No acute distress HEENT: Atraumatic Neck: Supple Lymphatic: no adenopathy Neuro: Alert, Non Focal, Oriented Times 3 Cardiovascular: Regular rate, Normal S1, Normal S2 Respiratory: Chest non-tender, No respiratory distress, Breath sounds nml Abdomen: Normal bowel sounds, Soft, No tenderness Extremities: Normal pulses Comments/Notes: right buttock's swelling is reduced, but still present tenderness, still has no erythema. - Results Results: Laboratory Results WBC 14.4 x10^3/uL (4.8-10.8) H 09/20/19 08:39 RBC 4.27 10^6/uL (4.70-6.10) L 09/20/19 08:39 Hgb 13.5 g/dL (14.0-18.0) L 09/20/19 08:39 Hct 39.4 % (42.0-52.0) L 09/20/19 08:39 MCV 92.3 fL (80.0-94.0) 09/20/19 08:39 MCH 31.6 pg (27.0-31.0) H 09/20/19 08:39 MCHC 34.3 g/dL (32.0-36.0) 09/20/19 08:39 RDW 13.8 % (12.0-15.0) 09/20/19 08:39 Plt Count 238 10^3/uL (130-450) 09/20/19 08:39 MPV 9.8 fL (7.4-11.4) 09/20/19 08:39 Neut # (Auto) 11.4 10^3/uL (1.5-6.6) H 09/20/19 08:39 Lymph # (Auto) 1.0 10^3/uL (1.5-3.5) L 09/20/19 08:39 [place] # (Auto) 1.6 10^3/uL (0.0-1.0) H 09/20/19 08:39 Eos # (Auto) 0.3 10^3/uL (0.0-0.7) 09/20/19 08:39 Baso # (Auto) 0.1 10^3/uL (0.0-0.1) 09/20/19 08:39 Absolute Nucleated RBC 0.00 x10^3/uL 09/20/19 08:39 Total Counted 100 09/19/19 05:23 Band Neuts % (Manual) Not Reportable 09/20/19 08:39 Reactive Lymphs % (Man) 1 % 09/18/19 08:45 Abnorm Lymph % (Manual) Not Reportable 09/20/19 08:39 Nucleated RBC % 0.0 /100WBC 09/20/19 08:39 Neutrophils # (Manual) Not Reportable 09/20/19 08:39 Lymphocytes # (Manual) Not Reportable 09/20/19 08:39 Monocytes # (Manual) Not Reportable 09/20/19 08:39 Eosinophils # (Manual) Not Reportable 09/20/19 08:39 Basophils # (Manual) Not Reportable 09/20/19 08:39 Differential Comment MANUAL=AUTO DIFF 09/20/19 08:39 WBC Morphology 1+ DOHLE BODIES (NORMAL) 1+ VACUOLATION (NORMAL) 09/20/19 08:39 WBC Morphology 1+ DOHLE BODIES (NORMAL) 1+ VACUOLATION (NORMAL) 09/20/19 08:39 Platelet Estimate NORMAL (130-450,000) (NORMAL) 09/20/19 08:39 Platelet Morphology NORMAL APPEARANCE (NORMAL) 09/20/19 08:39 RBC Morph Micro Appear NORMAL APPEARANCE (NORMAL) 09/20/19 08:39 Sodium 136 mmol/L (135-145) 09/20/19 08:39 Potassium 3.3 mmol/L (3.5-5.0) L 09/20/19 08:39 Chloride 104 mmol/L (101-111) 09/20/19 08:39 Carbon Dioxide 25 mmol/L (21-32) 09/20/19 08:39 Anion Gap 7.0 (6-13) 09/20/19 08:39 BUN 10 mg/dL (6-20) 09/20/19 08:39 Creatinine 0.7 mg/dL (0.6-1.2) 09/20/19 08:39 Estimated GFR (MDRD) 120 (>89) 09/20/19 08:39 Glucose 130 mg/dL (70-100) H 09/20/19 08:39 Lactic Acid 1.6 mmol/L (0.5-2.2) 09/18/19 08:45 Calcium 7.8 mg/dL (8.5-10.3) L 09/20/19 08:39 Magnesium 2.1 mg/dL (1.7-2.8) 09/19/19 05:23 Total Bilirubin 0.4 mg/dL (0.2-1.0) 09/20/19 08:39 AST 34 IU/L (10-42) 09/20/19 08:39 ALT 28 IU/L (10-60) 09/20/19 08:39 Alkaline Phosphatase 68 IU/L (42-121) 09/20/19 08:39 Total Creatine Kinase 356 IU/L (22-269) H 09/20/19 08:39 C-Reactive Protein 19.8 mg/dL (0-1.0) H 09/20/19 08:39 Total Protein 5.5 g/dL (6.7-8.2) L 09/20/19 08:39 Albumin 2.4 g/dL (3.2-5.5) L 09/20/19 08:39 Globulin 3.1 g/dL (2.1-4.2) 09/20/19 08:39 Albumin/Globulin Ratio 0.8 (1.0-2.2) L 09/20/19 08:39 Lipase 26 U/L (22-51) 09/18/19 08:45 Nasal Screen MRSA (PCR) NEGATIVE (NEGATIVE) 09/19/19 11:49 Urine Opiates Screen POSITIVE (NEGATIVE) H 09/18/19 22:30 Ur Oxycodone Screen NEGATIVE (NEGATIVE) 09/18/19 22:30 Urine Methadone Screen NEGATIVE (NEGATIVE) 09/18/19 22:30 Ur Propoxyphene Screen NEGATIVE (NEGATIVE) 09/18/19 22:30 Ur Barbiturates Screen NEGATIVE (NEGATIVE) 09/18/19 22:30 Ur Tricyclics Screen NEGATIVE (NEGATIVE) 09/18/19 22:30 Ur Phencyclidine Scrn NEGATIVE (NEGATIVE) 09/18/19 22:30 Ur Amphetamine Screen POSITIVE (NEGATIVE) H 09/18/19 22:30 U Methamphetamines Scrn POSITIVE (NEGATIVE) H 09/18/19 22:30 U Benzodiazepines Scrn NEGATIVE (NEGATIVE) 09/18/19 22:30 Urine Cocaine Screen NEGATIVE (NEGATIVE) 09/18/19 22:30 U Cannabinoids Screen NEGATIVE (NEGATIVE) 09/18/19 22:30 Ethyl Alcohol < 5.0 mg/dL 09/18/19 08:45 - Procedures Procedures: Procedures OTH & OPEN REPAIR INDIRECT INGUINAL HERNIA W GRFT OR PROSTH (12/03/13) SUPPLEMENT L INGUINAL REGION W SYNTH SUB, PERC ENDO (06/20/16) Sepsis Event Note (H) - Evaluation Current Stage of Sepsis: Sepsis Possible source of Sepsis: positive: Skin/soft tissue - Sepsis Criteria Sepsis Criteria: Recorded Temperature greater than 38.3C or Less than 36C, Recorded Heart Rate greater than 90 bpm, WBC count greater than 10% bands, WBC count greater than 12,000 or less than 4000 ABX Reporting Has patient been on IV antibiotics over the past 48 hours?: Yes Current Medications - Current Medications Current Medications: Active Medications Acetaminophen (Tylenol) 650 mg PO Q4HR PRN PRN Reason: Pain 1 to 4 Last Admin: 09/19/19 20:28 Dose: 650 mg Documented by: Docusate Sodium (Colace 250mg Capsule) 250 - 500 mg PO DAILY [facility] Last Admin: 09/20/19 08:27 Dose: 250 mg Documented by: Enoxaparin Sodium (Lovenox) 40 mg SUBQ DAILY [facility] Last Admin: 09/20/19 08:30 Dose: Not Given Documented by: Hydromorphone HCl (Dilaudid Inj Carp) 2 mg IVP Q2HR PRN PRN Reason: PAIN Last Admin: 09/20/19 10:26 Dose: 2 mg Documented by: Sodium Chloride (Normal Saline 0.9%) 1,000 mls @ 100 mls/hr IV .Q10H [facility] Last Admin: 09/20/19 07:14 Dose: 100 mls/hr Documented by: Cefepime HCl 2 gm/ Sodium (Chloride) 100 mls @ 200 mls/hr IV BID [facility] Last Infusion: 09/20/19 08:34 Dose: Infused Documented by: Vancomycin HCl 1 gm/Vancomycin HCl 250 mg/ Sodium Chloride 250 mls @ 166.667 mls/hr IV Q12H [facility] Last Infusion: 09/20/19 10:10 Dose: Infused Documented by: Ketorolac Tromethamine (Toradol Inj (30mg)) 30 mg IVP Q6HR PRN PRN Reason: PAIN Stop: 09/23/19 20:41 Last Admin: 09/20/19 11:08 Dose: 30 mg Documented by: Lorazepam (Ativan) 0.5 mg PO Q8H PRN PRN Reason: Anxiety Last Admin: 09/19/19 04:31 Dose: 0.5 mg Documented by: Nicotine (Nicoderm) 1 patch TOP DAILY [facility] Last Admin: 09/20/19 08:30 Dose: 1 patch Documented by: Ondansetron HCl (Zofran Inj) 4 mg IVP Q6HR PRN PRN Reason: Nausea / Vomiting Pantoprazole Sodium (Protonix) 40 mg PO QDAC [facility] Last Admin: 09/20/19 06:08 Dose: 40 mg Documented by: Polyethylene Glycol (Miralax) 17 gm PO DAILY [facility] Last Admin: 09/20/19 08:27 Dose: 17 gm Documented by: Sodium Chloride (Normal Saline Flush 0.9%) 10 ml IVP PRN PRN PRN Reason: NEEDED PER PROVIDER ORDERS Last Admin: 09/18/19 19:29 Dose: 10 ml Documented by: Sodium Chloride (Normal Saline Flush 0.9%) 10 ml IVP 0100,0900,1700 [facility] Last Admin: 09/20/19 03:40 Dose: Not Given Documented by: Zolpidem Tartrate (Ambien) 5 mg PO QPM PRN PRN Reason: Insomnia Last Admin: 09/19/19 22:07 Dose: 5 mg Documented by: Losartan Potassium 50 mg PO DAILY 12/02/13
[2019-09-20] MEDS: KETOROLAC 30 MG/ML VIAL IVP PRN ×2 (11:08→20:01)
[2019-09-20] MEDS ORDERED: LIDOCAINE JELLY 2% 6 ML JEL.PF.APP TOP SCH (12:00)
--- NOTE | 2019-09-20 16:28 | PROVIDER PROGRESS NOTE ---
Subjective - Prog Note Date Prog Note Date: 09/20/19 - Subjective Pt reports feeling: Improved (less pain, moving better) Objective - Vital Signs/Intake & Output Vital Signs: Vital Signs x48h Temp Pulse Resp BP Pulse Ox 09/20/19 15:51 37.0 C 69 18 112/65 99 Intake & Output: Intake & Output 09/17/19 09/18/19 09/19/19 09/20/19 23:59 23:59 23:59 23:59 Intake Total 4410.000 4340.667 3013.333 Output Total 1275 2420 1250 Balance 3135.000 9735.618 0395.333 - Objective General Appearance: positive: No acute distress Extremities: positive: Other (right buttock dressing c/d/i) - Lab Results Fish Bones: 09/20/19 08:39 09/20/19 08:39 Other Labs: Lab Results x24hrs 09/20/19 09/20/19 Range/Units 08:39 08:39 WBC 14.4 H (4.8-10.8) x10^3/uL RBC 4.27 L (4.70-6.10) 10^6/uL Hgb 13.5 L (14.0-18.0) g/dL Hct 39.4 L (42.0-52.0) % MCV 92.3 (80.0-94.0) fL MCH 31.6 H (27.0-31.0) pg MCHC 34.3 (32.0-36.0) g/dL RDW 13.8 (12.0-15.0) % Plt Count 238 (130-450) 10^3/uL MPV 9.8 (7.4-11.4) fL Neut # (Auto) 11.4 H (1.5-6.6) 10^3/uL Lymph # (Auto) 1.0 L (1.5-3.5) 10^3/uL [place] # (Auto) 1.6 H (0.0-1.0) 10^3/uL Eos # (Auto) 0.3 (0.0-0.7) 10^3/uL Baso # (Auto) 0.1 (0.0-0.1) 10^3/uL Absolute Nucleated RBC 0.00 x10^3/uL Band Neuts % (Manual) Not Reportable Abnorm Lymph % (Manual) Not Reportable Nucleated RBC % 0.0 /100WBC Neutrophils # (Manual) Not Reportable Lymphocytes # (Manual) Not Reportable Monocytes # (Manual) Not Reportable Eosinophils # (Manual) Not Reportable Basophils # (Manual) Not Reportable Differential Comment MANUAL=AUTO DIFF WBC Morphology 1+ VACUOLATION (NORMAL) Platelet Estimate NORMAL (130-450,000) (NORMAL) Platelet Morphology NORMAL APPEARANCE (NORMAL) RBC Morph Micro Appear NORMAL APPEARANCE (NORMAL) Sodium 136 (135-145) mmol/L Potassium 3.3 L (3.5-5.0) mmol/L Chloride 104 (101-111) mmol/L Carbon Dioxide 25 (21-32) mmol/L Anion Gap 7.0 (6-13) BUN 10 (6-20) mg/dL Creatinine 0.7 (0.6-1.2) mg/dL Estimated GFR (MDRD) 120 (>89) Glucose 130 H (70-100) mg/dL Calcium 7.8 L (8.5-10.3) mg/dL Total Bilirubin 0.4 (0.2-1.0) mg/dL AST 34 (10-42) IU/L ALT 28 (10-60) IU/L Alkaline Phosphatase 68 (42-121) IU/L Total Creatine Kinase 356 H (22-269) IU/L C-Reactive Protein 19.8 H (0-1.0) mg/dL Total Protein 5.5 L (6.7-8.2) g/dL Albumin 2.4 L (3.2-5.5) g/dL Globulin 3.1 (2.1-4.2) g/dL Albumin/Globulin Ratio 0.8 L (1.0-2.2) Sepsis Event Note (H) - Evaluation Current Stage of Sepsis: Sepsis Possible source of Sepsis: positive: Skin/soft tissue - Sepsis Criteria Sepsis Criteria: Recorded Temperature greater than 38.3C or Less than 36C, Recorded Heart Rate greater than 90 bpm, WBC count greater than 10% bands, WBC count greater than 12,000 or less than 4000 Assessment/Plan - Problem List (2) Abscess of buttock, right Impression: Improved after I and D deep intramuscular right gluteal abscess. moist dressing to open wound bid d/c planning follow up surgery in about a week
[2019-09-20] MEDS: ACETAMINOPHEN 325 MG TABLET PO PRN (16:48)
[2019-09-20 18:30] LABS: VANCOMYCIN,RANDOM 7.3 ug/mL
[2019-09-20] MEDS: LORazepam 0.5 MG TABLET PO PRN (20:44)
[2019-09-20] MEDS: SODIUM CHLORIDE FLUSH 0.9% 10 ML SYRINGE IVP PRN ×2 (20:45→20:53)
[2019-09-20] MEDS: LIDOCAINE JELLY 2% 6 ML JEL.PF.APP TOP SCH (21:06)
[2019-09-21] MEDS: SODIUM CHLORIDE FLUSH 0.9% 10 ML SYRINGE IVP SCH ×2 (01:21→11:29)
[2019-09-21] MEDS: VANCOMYCIN INJ 1 GM, VANCOMYCIN INJ 250 MG in SODIUM CHLORIDE 0.9% 250 ML IV SCH (03:53)
[2019-09-21 06:00] LABS: BASOPHILS % (AUTO) 0.4 %; EOSINOPHILS # (AUTO) 0.3 10^3/uL (0.0-0.7); EOSINOPHILS % (AUTO) 3.1 %; HGB - HEMOGLOBIN 13.6 g/dL (14.0-18.0); LYMPHOCYTES # (AUTO) 0.8 10^3/uL (1.5-3.5); LYMPHOCYTES % (AUTO) 7.1 %; MEAN CORPUSCULAR HEMOGLOBIN 31.3 pg (27.0-31.0); MEAN CORPUSCULAR HGB CONC 33.9 g/dL (32.0-36.0); MEAN CORPUSCULAR VOLUME 92.2 fL (80.0-94.0); MEAN PLATELET VOLUME 9.9 fL (7.4-11.4); MONOCYTES # (AUTO) 1.2 10^3/uL (0.0-1.0); MONOCYTES % (AUTO) 11.5 %; NEUTROPHILS # (AUTO) 8.3 10^3/uL (1.5-6.6); NEUTROPHILS % (AUTO) 77.1 %; PLT - PLATELET COUNT 280 10^3/uL (130-450); RED BLOOD COUNT 4.35 10^6/uL (4.70-6.10); WHITE BLOOD COUNT 10.8 x10^3/uL (4.8-10.8)
[2019-09-21 06:18] LABS: ALBUMIN 2.4 g/dL (3.2-5.5); ALBUMIN/GLOBULIN RATIO 0.8 (1.0-2.2); BILIRUBIN,TOTAL 0.5 mg/dL (0.2-1.0); CALCIUM 7.9 mg/dL (8.5-10.3); CREATININE 0.7 mg/dL (0.6-1.2); CRP - C-REACTIVE PROTEIN 14.1 mg/dL (0-1.0); TOTAL PROTEIN 5.5 g/dL (6.7-8.2)
[2019-09-21] MEDS: PANTOPRAZOLE 40 MG TABLET PO SCH (06:18)
[2019-09-21 07:54] VITALS: BP 140/76
[2019-09-21] MEDS: CEFEPIME 2 GM in SODIUM CHLORIDE 0.9% MINIBAG 100 ML IV SCH (09:18)
[2019-09-21] MEDS: SODIUM CHLORIDE 0.9% 1,000 ML IV SCH (09:18)
[2019-09-21] MEDS: NICOTINE 14 MG PATCH TOP SCH (09:21)
[2019-09-21] MEDS: ENOXAPARIN 40 MG/0.4 ML SYRINGE SUBQ SCH (09:23)
[2019-09-21] MEDS: polyethylene glycoL 3350 17 GM PACKET PO SCH (09:27)
[2019-09-21] MEDS: DOCUSATE SODIUM 250 MG CAPSULE PO SCH (09:28)
[2019-09-21] MEDS: LORazepam 0.5 MG TABLET PO PRN (09:28)
[2019-09-21] MEDS: KETOROLAC 30 MG/ML VIAL IVP PRN (09:28)
[2019-09-21] MEDS: HYDROmorphone 1 MG/ML CARPUJECT IVP PRN (10:33)
[2019-09-21] MEDS: LIDOCAINE JELLY 2% 6 ML JEL.PF.APP TOP SCH (10:40)
--- NOTE | 2019-09-21 10:58 | Discharge Plan ---
Discharge Plan Problem Reviewed?: Yes Disposition: Home, Self Care Condition: Fair Prescriptions: Saccharomyces Boulardii [Florastor] 250 mg PO BID #28 capsule Lidocaine Jelly 2% [Glydo] 1 ml TOP DAILY #10 jel.pf.tiffanie Ibuprofen [Motrin] 800 mg PO Q8H PRN #30 tablet PRN Reason: PAIN &/OR FEVER Doxycycline Hyclate [Vibramycin] 100 mg PO BID #28 capsule Hydrocodone/Acetaminophen [Vicodin Hp 10-300 mg Tablet] 1 each PO Q8H PRN #9 tablet PRN Reason: Severe Pain Diet: Regular Activity Restrictions: Activity as Tolerated Shower Restrictions: No Driving Restrictions: No Instruction Topics: Drainage Abscess, Cellulitis Dc Health Concerns: You were admitted with a fever and infection in the right gluteus (which was cellulitis and a small, deep abscess was drained). There were no bacteria found in your bloodstream but the abscess fluid specimen obtained at surgery, has grown Staph aureus bacteria. You are being sent home to take 2 weeks of oral antibiotics (Doxycycline) with a probiotic (to prevent diarrhea). A prescription for medications for pain control was also electronically sent to your pharmacy (high dose Motrin and Vicodin, which you said was OK for you, even though it contains codeine). You need daily dressing changes of the wound, so a prescription for lidocaine gel has been ordered for use at home. We are giving you some gauze supplies. Keep the area clean and dry. The surgeon is ordering [facility] service to come out and do daily dressing changes, but the earliest they can come is Monday, and only if you have an established primary care provider. Is important to choose a primary care provider therefore, and our discharge nurse will call you on Monday to see who you have chosen and then get you established with an appointment there. The surgeon needs to see you in the [facility] in 1 week. Please call [phone] to make an appointment with Dr. Erwin Singleton. You may resume all your other prehospital medications. If you have new or worsening symptoms, call your PCP for advice or come to the ER. Plan of Treatment: As above. Care Goals: Improvement in symptoms and stabilization are the goals. Assessment: Patient and his mother understand and are agreeable with the plan. Additional Instructions or Follow Up instructions: If you have new or worsening symptoms, call your new PCP for advice, or go to the [facility] walk-in clinic in [place], or come to this [facility] ER. No Smoking: If you smoke, Please STOP! Call for help.
[2019-09-21] MEDS ORDERED: DOXYCYCLINE 100 MG TABLET PO SCH (11:00)
--- NOTE | 2019-09-21 12:26 | DISCHARGE SUMMARY ---
Discharge Summary Admit Date: 09/18/19 Discharge Date: 09/21/19 Discharging Provider: Dr Yue Marquez Primary Care Provider: No PCP Code Status: Attempt Resuscitation Condition at Discharge: Fair Discharge Disposition: 01 Home, Self Care - HPI History of Present Illness: From the admission H&P of [employer] Arturo Heredia: This is 49-year-old gentleman with history of HTN, alcohol and drug abuse who presents to the ER complaining of right buttock pain. The patient reported he received Vivitrol im injection in the right buttock at a detox facility on 09/11/2019. About 3-4 days ago, he started developing pain and swelling in the area where he had the injection. His pain became more severe now. He denies fevers but he reports he had chills and sweats. He reports is still smoking cigarette and is smoking Meth even last night for "pain control." Patient denied chest pain, abdominal pain, nausea vomiting or diarrhea and denies difficulty breathing. In the ER, CT of pelvis shows no percutaneous drainage of fluid, there is surrounding right gluteal myositis as well as overlying subcutaneous cellulitis. Due to concern for abscess, the ER called a surgeon for consultation. His routine lab test show significantly elevated WBC and elevated CRP, but are otherwise unremarkable. In the ER, patient was found to be febrile at 38.7 degrees C. Patient was admitted for further medical management of cellulitis and possible abscess. I discussed with the patient about his care goals; patient says he requests to be Full Code. - CONSULTS | PROCEDURES Consultations: Dr Erwin Singleton Procedures: Incision and Drainage - HOSPITAL COURSE Hospital Course: (1) Sepsis He was started on IV fluids, pain meds and IV antibiotics. He had a fever as high as 39.7 degrees C(on his 2nd day) and white count dixie to 19K with 11% Bands on that 2nd day. His tachycardia improved, and white count eventually decreased and sepsis cleared. (2) Cellulitis CT scan show cellulitis in his right buttock at the injection site. It had swelling and tenderness. He was put on empiric iv Cefepime and iv Vancomycin. Blood cultures were neg to date. (3) Abscess of buttock He continued to have a white count and fever, therefore he was taken to the OR by the general surgeon who performed incision and drainage, with only a small amount of drainage of an abscess obtained and iot was sent for culture. This specimen grew Staph aureus that was pansensitive except to Penicillin. He was transitioned to oral Doxycycline on the day of discharge and sent home to take 14 more days of Doxycycline with Florastor and to have daily dressing changes with gauze, using topical lidocaine gel for pain, in addition to Motrin as needed and Vicodin as needed. (4) HTN (hypertension) He was kept on his Losartan. (5) Drug abuse The patient's urine drug screen was positive for methamphetamine and amphentamine. There was discussion with patient about quitting drug abuse He got iv Ativan PRN anxiety. - ALLERGIES Allergies/Adverse Reactions: Allergies Allergy/AdvReac Type Severity Reaction Status Date / Time codeine Allergy Intermediate Hives Verified 05/30/18 13:04 - MEDICATIONS Home Medications: Ambulatory Orders Medication Instructions Recorded Confirmed Losartan Potassium 50 mg PO DAILY 12/02/13 09/18/19 Doxycycline Hyclate [Vibramycin] 100 mg PO BID #28 capsule 09/21/19 Hydrocodone/Acetaminophen [Vicodin 1 each PO Q8H PRN #9 tablet 09/21/19 Hp 10-300 mg Tablet] Ibuprofen [Motrin] 800 mg PO Q8H PRN #30 tablet 09/21/19 Lidocaine Jelly 2% [Glydo] 1 ml TOP DAILY #10 jel.pf.tiffanie 09/21/19 Saccharomyces Boulardii [Florastor] 250 mg PO BID #28 capsule 09/21/19 - PHYSICAL EXAM AT DISCHARGE General Appearance: positive: No acute distress, Alert Eyes Bilateral: positive: Normal inspection, EOMI ENT: positive: ENT inspection nml, No signs of dehydration Neck: positive: Nml inspection, No JVD Respiratory: positive: No respiratory distress Cardiovascular: positive: Regular rate & rhythm Abdomen: positive: Non-tender, No distention Skin: positive: Color nml, Other (gauze bandage on R buttock) Extremities: positive: No pedal edema Neurologic/Psychiatric: positive: Oriented x3, Other (Non-focal) - LABS Result Diagrams: 09/21/19 05:45 09/21/19 05:45 - SEPSIS Current Stage of Sepsis: Sepsis Possible source of Sepsis: Skin/soft tissue Sepsis Criteria: Recorded Temperature greater than 38.3C or Less than 36C, Recorded Heart Rate greater than 90 bpm, WBC count greater than 10% bands, WBC count greater than 12,000 or less than 4000 - FOLLOW UP Follow Up: Patient did not think he could accomplish daily dressing changes. He was offered to come to the [facility] but he had no PCP, for that to be officially ordered. The General Surgeon wrote the order for a Home Health service to do dressing changes at his home, earliest start date being 09/23/19. Patient was told he needs to find a PCP, for Home Health to report to. The carbon sequestration plant operator will call him on 09/23/2019, to help him arrange appointment with the PCP that he has chosen. In the mean time, the dressing change was done here on 09/21/2019, his day of discharge. His mother will do the d ressing change on 09/22/2019. The General Surgeon would like him to have follow-up in the [facility] clinic in 1 week, and he was given the phone number to make an appointment there. - TIME SPENT Time Spent in Discharge (Minutes): 60
--- NOTE | 2019-09-25 15:15 | OPERATIVE REPORT ---
DATE OF SERVICE: 09/19/2019 Physician: Erwin Singleton MD DATE OF SURGERY: 09/19/2019 PREOPERATIVE DIAGNOSIS: Deep right upper buttock inflammatory process versus abscess. POSTOPERATIVE DIAGNOSIS: Deep upper right buttock intramuscular abscess. PROCEDURE PERFORMED: Incision and drainage of deep, intramuscular right gluteal abscess. SURGEON: Erwin Singleton MD CRAYON GRADER: None. ANESTHESIA: 1. Laryngeal mask anesthesia. 2. Local anesthesia with Marcaine. COMPLICATIONS: None. DRAINS: None. ESTIMATED BLOOD LOSS: None. SPECIMEN: Culture obtained. FINDINGS: Deep intramuscular gluteus asaf abscess with healthy tissue, including musculature, adipose tissue, fascia, and skin. INDICATIONS FOR PROCEDURE: The patient is a 49-year-old gentleman with history of intramuscular right gluteal injection approximately 10 days prior to the procedure. The patient has developed progressive inflammation. He had an ultrasound and CT scan, which did not show evidence of abscess. Clinically, his condition was deteriorating. Incision, drainage, debridement was recommended. Risks discussed, alternatives discussed. All questions answered and consent obtained. DESCRIPTION OF PROCEDURE: The patient was properly identified, brought to the operating room and placed in left lateral decubitus position. Monitored anesthesia care was given, as well as IV sedation. Laryngeal mask anesthesia was induced. He was prepped and draped in a sterile fashion. He had been on antibiotics. A 5-6 cm vertical incision was made over the most swollen portion of the right buttock. Overlying skin and soft tissue was normal. Dissection proceeded with cutting current down to the gluteus asaf musculature. The musculature was bluntly in the direction of its fibers and abscess cavity completely drained. Abscess cavity measured 5-6 cm. The musculature, fascia, subcutaneous tissue, and skin was all healthy and viable otherwise. A gauze packing was placed. Dry dressing was further applied. He tolerated the procedure well, was awakened and brought to recovery in good condition. TD: 09/25/2019 12:57 LAURA
== END 2019-09-21 13:15 | disposition home or self-care (01) | DRG 867 ==
LOC: ED 08:31 → MS2 10:40
PROVIDERS: ADMIT Nurse Practitioner Gerontology; ATTEND Internal Medicine
PROC: 0Y900ZZ Drainage of Right Buttock, Open Approach (ICD-10-PCS; principal; 2019-09-19 13:00)
DX: T80.29XA Infection following other infusion, transfusion and therapeutic injection, initial encounter (principal); A41.01 Sepsis due to Methicillin susceptible Staphylococcus aureus; M60.08 Infective myositis, other site; L03.317 Cellulitis of buttock; Z16.11 Resistance to penicillins; Y84.8 Other medical procedures as the cause of abnormal reaction of the patient, or of later complication, without mention of misadventure at the time of the procedure; Y92.531 Health care provider office as the place of occurrence of the external cause; I10 Essential (primary) hypertension; F10.10 Alcohol abuse, uncomplicated; F15.10 Other stimulant abuse, uncomplicated; F41.9 Anxiety disorder, unspecified; H91.90 Unspecified hearing loss, unspecified ear; G89.29 Other chronic pain; M54.9 Dorsalgia, unspecified; F17.200 Nicotine dependence, unspecified, uncomplicated
CPT/HCPCS: 36415; 72193; 76882; 80053; 80202; 80306; 80320; 82550; 83605; 83690; 83735; 85025; 86140; 87040; 87070; 87181; 87205; 87640; 93306; 96361; 96365; 96375; 96376; 99285; A9270; J0131; J1170; J1650; J3370; J7120; Q9967

== ENCOUNTER 2019-12-20 15:21 | Outpatient (CLI) | payer MEDICAID | END 2019-12-20 15:22 | disposition home or self-care (01) | LOC: COV 15:21 | PROVIDERS: ATTEND Surgery | DX: Z01.818 Encounter for other preprocedural examination (principal); K40.90 Unilateral inguinal hernia, without obstruction or gangrene, not specified as recurrent; Z20.828 Contact with and (suspected) exposure to other viral communicable diseases ==

== ENCOUNTER 2020-01-07 12:06 | Outpatient (CLI) | payer MEDICAID | END 2020-01-07 12:07 | disposition home or self-care (01) | LOC: COV 12:06 | PROVIDERS: ATTEND Surgery | DX: Z01.818 Encounter for other preprocedural examination (principal); Z20.828 Contact with and (suspected) exposure to other viral communicable diseases; K40.90 Unilateral inguinal hernia, without obstruction or gangrene, not specified as recurrent ==

== ENCOUNTER 2020-01-14 09:51 | Day surgery (SDC) | payer MEDICAID ==
[2020-01-14] MEDS ORDERED: LACTATED RINGERS 1,000 ML IV ONE (10:00)
[2020-01-14] MEDS ORDERED: CEFAZOLIN SODIUM IN 0.9 % NACL 2 GM/100 ML BAG IV ONE (10:18)
[2020-01-14] MEDS ORDERED: METOCLOPRAMIDE 10 MG/2 ML VIAL IVP PRN (11:00)
[2020-01-14] MEDS ORDERED: MORPHINE 2 MG/ML CARPUJECT IVP PRN (11:00)
[2020-01-14] MEDS ORDERED: HYDROmorphone 0.5 MG/0.5 ML SYRINGE IVP PRN (11:00)
[2020-01-14] MEDS ORDERED: ATROPINE ABBOJECT 1 MG/10 ML SYRINGE IVP PRN (11:00)
[2020-01-14] MEDS ORDERED: ONDANSETRON 4 MG/2 ML VIAL IVP PRN (11:00)
[2020-01-14] MEDS ORDERED: NALOXONE 0.4 MG/ML VIAL IVP PRN (11:00)
[2020-01-14] MEDS ORDERED: LACTATED RINGERS 1,000 ML IV SCH (11:00)
[2020-01-14] MEDS ORDERED: fentaNYL 100 MCG/2 ML VIAL IVP PRN (11:00)
[2020-01-14] MEDS ORDERED: ePHEDrine 50 MG/ML VIAL IVP PRN (11:00)
--- NOTE | 2020-01-14 11:00 | ANESTHESIA ---
Pre-Anesthesia VS, & Labs - Diagnosis recurrent left inguinal hernia - Procedure open inguinal hernia repair Vital Signs: Temp Pulse Resp BP Pulse Ox 36.5 C 65 14 148/101 H 95 01/14/20 10:00 01/14/20 10:00 01/14/20 10:00 01/14/20 10:00 01/14/20 10:00 Height: 5 ft 11 in Weight (kg): 82.1 kg Body Mass Index: 25.2 BMI Classification: Overweight - NPO >8 hours - Lab Results Lab results reviewed: Yes Home Medications and Allergies Losartan Potassium 50 mg PO DAILY 12/02/13 Allergies/Adverse Reactions: Allergies Allergy/AdvReac Type Severity Reaction Status Date / Time codeine Allergy Intermediate Hives Verified 05/30/18 13:04 Anes History & Medical History - Anesthetic History Anesthesia Complications: reports: No previous complications Family history of Anesthesia Complications: Denies Family history of Malignant Hyperthermia: Denies - Medical History Cardiovascular: reports: Hypertension, Other Pulmonary: reports: None Gastrointestinal: reports: None Urinary: reports: None Neuro: reports: Head injury Musculoskeletal: reports: Osteoarthritis Endocrine/Autoimmune: reports: None Blood Disorders: reports: None Skin: reports: None Smoking Status: Heavy tobacco smoker (1-2ppd) Psychosocial: reports: Alcohol (drinks 2 "1/5s" of vodka a month) - Surgical History General: Other Orthopedic: Carpal Tunnel surgery, Other Dermatologic: Skin grafts Exam General: Alert, Oriented x3, Cooperative, No acute distress Mouth Openin Fingerbreadth Neck Mobility: Normal Mallampati classification: II Respiratory: Lungs clear, Normal breath sounds, No respiratory distress, No accessory muscle use Cardiovascular: Regular rate, Normal S1, Normal S2, No murmurs Plan Anesthesia Type: General Consent for Procedure(s) Verified and Reviewed: Yes Code Status: Attempt Resuscitation ASA classification: 2-Mild systemic disease Is this case an emergency?: No
[2020-01-14] MEDS: BUPIVACAINE 0.25% PF 30 ML VIAL ONE ×2 (12:07→13:49)
[2020-01-14] MEDS ORDERED: LACTATED RINGERS 300 ML IV ONE (14:03)
--- NOTE | 2020-01-14 14:06 | OPERATIVE REPORT ---
Operative Report - General Procedure Date: 01/14/20 Planned Procedure: left inguinal hernia Pre-Op Diagnosis: left inguinal hernia recurrent x 2 Procedure Performed: open lih and excision old mesh Post Op Diagnosis: severino - Procedure Note Anesthesia Technique: General LMA, Local Estimated Blood Loss (mL): 10 Findings: very large direct and old mesh stuck to cord Complications: none
[2020-01-14] MEDS ORDERED: oxyCODONE 5 MG TABLET PO PRN (14:11)
[2020-01-14 15:02] VITALS: BP 168/104
[2020-01-14] MEDS ORDERED: oxyCODONE 5 MG TABLET ONE (15:02)
--- NOTE | 2020-01-14 19:01 | OPERATIVE REPORT ---
DATE OF SERVICE: 01/14/2020 Physician: Erwin Singleton MD PREOPERATIVE DIAGNOSIS: Left inguinal hernia, recurrent x2. POSTOPERATIVE DIAGNOSIS: Left inguinal hernia, recurrent x2. PROCEDURE PERFORMED 1. Open left inguinal hernia repair with mesh, John. 2. Extra degree difficulty secondary to prior large ProFlor mesh plug. ESTIMATED BLOOD LOSS: 10 mL DRAINS: None. PROSTHETIC: Polypropylene mesh placed in John fashion. COMPLICATIONS: None. SPECIMEN: Ilioinguinal nerve removed; however, not sent for pathology. A large ProFlor plug removed with considerable difficulty not sent for pathology. INDICATIONS FOR PROCEDURE: Patient is an active 49-year-old gentleman with a distant history of open inguinal hernia repair with ProFlor mesh plug. He states the hernia quickly recurred. He then underwent laparoscopic repair, which has since failed. PHYSICAL EXAMINATION: He has a very palpable mesh and in addition to protruding bowel. Open repair was recommended. Risks discussed, and alternatives discussed. All questions answered and consent obtained. DETAILS OF PROCEDURE: Patient was properly identified and brought to the operating room and placed in supine position. Laryngeal mask anesthesia was induced. He was prepped and draped in a sterile fashion, given preoperative antibiotics. Sequential compression devices were used. A 5 cm incision was made 2 cm cephalad of the prior open incision. Dissection proceeded with cutting current. The superficial epigastric vein was identified, clamped, divided, and tied with 3-0 Vicryl. Dissection proceeded down to the aponeurosis. The aponeurosis was opened in the direction of its fibers extending to the external ring. The cord structures were mobilized and brought up. He had a very large direct defect essentially a blowout of the entire floor, which measured approximately 4 x 6 cm. The large direct defect was carefully mobilized away from the surrounding structures. The floor was then repaired with a 2-0 silk pursestring suture. Care was taken not to entrap the genitofemoral nerve. The ilioinguinal nerve branched and both branches were excised back to musculature. He did not have an indirect hernia sac. He had a large ProFlor plug densely scarred to the underside of the cord structures. With great patience it was sharply removed from the cord structures without injury to the cord structures. A polypropylene mesh was then cut to size and placed in John fashion. Mesh was cut with tails. The mesh was secured with multiple interrupted 0 Ti-Cron sutures. Sutures were placed at the pubic tubercle along the shelving border of Poupart's ligament and medially along the musculature of the internal oblique. The medial tail of the mesh was secured to the shelving border of Poupart's ligament with 3 interrupted 0 Ti-Cron sutures. Additional suture was placed in the crotch of the mesh, recreating the internal ring of appropriate size. The aponeurosis was closed with a running 2-0 Vicryl suture. Rodrigo's was closed with interrupted 3-0 Vicryl suture. Skin was closed with a running 4-0 Monocryl subcuticular suture. Dressing was applied. He tolerated the procedure well. TD: 01/14/2020 14:49 LAURA
== END 2020-01-14 09:52 | disposition home or self-care (01) ==
LOC: SDS 09:51
PROVIDERS: ATTEND Surgery
DX: K40.91 Unilateral inguinal hernia, without obstruction or gangrene, recurrent (principal); I10 Essential (primary) hypertension; F17.210 Nicotine dependence, cigarettes, uncomplicated
CPT/HCPCS: 49520; A9270; C1781; J0690; J7120

== ENCOUNTER 2020-01-15 03:08 | Outpatient (CLI) | payer MEDICAID | END 2020-01-15 03:09 | disposition critical access hospital (66) | LOC: EMS 03:08 | PROVIDERS: ATTEND Surgery | DX: R06.02 Shortness of breath (principal); R07.89 Other chest pain; R41.0 Disorientation, unspecified | CPT/HCPCS: A0425; A0429; A0999 ==

== ENCOUNTER 2020-01-15 03:39 | Emergency (ER) | payer MEDICAID ==
[2020-01-15] MEDS ORDERED: NITROGLYCERIN SL 0.4 MG TABLET SL STA (03:48)
--- NOTE | 2020-01-15 03:50 | ED Physician Documentation ---
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 Patient says this occurred when he was on his way towards the bathroom to have a bowel movement, but s.o. (in ED room at bedside) says patient was on toilet straining to have BM. Patient's s.o. says patient had LOC lasting less than a minute. Was not hypotensive on EMS evaluation nor during transport. However, he arrives in ED pale, diaphoretic, c/o chest tightness, lightheadedness, generalized weakness Review of Systems Constitutional: reports: Sweats. denies: Fever, Chills Cardiac: reports: Chest pain / pressure. denies: Palpitations, Pedal edema, Calf pain Respiratory: denies: Dyspnea, Cough GI: reports: Nausea. denies: Abdominal Pain, Vomiting : reports: Other (post-operative scrotal swelling and discoloration (echymosis)) Neurologic: reports: Generalized weakness, Syncope. denies: Focal weakness, Numbness, Headache PD PAST MEDICAL HISTORY - Past Medical History Cardiovascular: Hypertension, Other Respiratory: None Neuro: Head injury Endocrine/Autoimmune: None GI: None : None HEENT: Chronic vision loss, Chronic hearing loss Psych: None Musculoskeletal: Osteoarthritis Derm: None - Past Surgical History Past Surgical History: Yes General: Other Ortho: Carpal Tunnel surgery, Other Derm: Skin grafts - Present Medications Home Medications: Ambulatory Orders Medication Instructions Recorded Confirmed Losartan Potassium 50 mg PO DAILY 12/02/13 01/13/20 oxyCODONE/ACET 5/325 [Percocet 5 1 each PO Q4-6H PRN #40 tablet 10/20/20 mg/325 mg] - Allergies Allergies/Adverse Reactions: Allergies Allergy/AdvReac Type Severity Reaction Status Date / Time codeine Allergy Intermediate Hives Verified 05/30/18 13:04 - Social History Does the pt smoke?: Yes Smoking Status: Heavy tobacco smoker (1-2ppd) Does the pt drink ETOH?: Yes Does the pt have substance abuse?: Yes - Immunizations Immunizations are current?: No Immunizations: TDAP >10years/unknown - POLST Patient has POLST: No PD ED PE NORMAL - Vitals Vital signs reviewed: Yes - General General: Alert and oriented X 3, Well developed/nourished - HEENT HEENT: PERRL, EOMI, Other (tacky mucous membranes) - Neck Neck: Supple, no meningeal sign - Cardiac Cardiac: No murmur - Respiratory Respiratory: No respiratory distress, Clear bilaterally - Abdomen Abdomen: Soft, Other (left inguinal surgical site covered with clear dressing with gauze underlying; there is expected echymosis and swelling at site. he has large amount of scrotal swelling and echymotic discoloration) PD ED PE EXPANDED - General General: Anxious, Other (diaphoretic, pale, anxious) - Cardiac Cardiac: Tachy, Regular Rhythm - Derm Derm: Pale, Diaphoretic Results - Vitals Vitals: Vital Signs - 24 hr 01/15/20 01/15/20 01/15/20 03:43 03:52 04:14 Temperature 35.5 C L 35.5 C L 35.9 C L Heart Rate 110 H 109 H 94 Heart Rate [ Sitting] Heart Rate [ Supine] Respiratory 22 15 14 Rate Blood Pressure 125/106 H 97/74 106/80 Blood Pressure [Sitting] Blood Pressure [Supine] O2 Saturation 99 96 98 01/15/20 01/15/20 01/15/20 04:30 05:05 05:30 Temperature 35.9 C L 36.4 C L Heart Rate 98 96 90 Heart Rate [ Sitting] Heart Rate [ Supine] Respiratory 15 12 14 Rate Blood Pressure 121/96 H 146/100 H 137/94 H Blood Pressure [Sitting] Blood Pressure [Supine] O2 Saturation 98 100 99 01/15/20 01/15/20 01/15/20 06:00 06:25 06:30 Temperature 37.1 C 37.1 C Heart Rate 91 90 Heart Rate [ 118 H Sitting] Heart Rate [ 93 Supine] Respiratory 14 20 Rate Blood Pressure 140/90 H 145/90 H Blood Pressure 107/72 [Sitting] Blood Pressure 157/89 H [Supine] O2 Saturation 100 100 01/15/20 01/15/20 01/15/20 07:00 08:00 08:30 Temperature Heart Rate 110 H 98 93 Heart Rate [ Sitting] Heart Rate [ Supine] Respiratory 20 16 17 Rate Blood Pressure 149/93 H 139/94 H 123/93 H Blood Pressure [Sitting] Blood Pressure [Supine] O2 Saturation 100 99 97 Oxygen O2 Source Room air - EKG (time done) No standard instances Rate: Rate (enter#) (110), Tachy Rhythm: NSR, LAE [place]: Normal Intervals: Normal OK QRS: Normal Ischemia: Normal ST segments - Labs Labs: Laboratory Tests 01/15/20 01/15/20 01/15/20 03:54 03:54 03:54 WBC 22.1 H RBC 4.52 L Hgb 14.2 Hct 42.4 MCV 93.8 MCH 31.4 H MCHC 33.5 RDW 12.9 Plt Count 304 MPV 9.8 Neut # (Auto) Not Reportable Lymph # (Auto) Not Reportable [place] # (Auto) Not Reportable Eos # (Auto) Not Reportable Baso # (Auto) Not Reportable Absolute Nucleated RBC Not Reportable Total Counted 100 Band Neuts % (Manual) 3 Abnorm Lymph % (Manual) 0 Nucleated RBC % Not Reportable Neutrophils # (Manual) 17.2 H Lymphocytes # (Manual) 2.4 Monocytes # (Manual) 2.2 H Eosinophils # (Manual) 0.0 Basophils # (Manual) 0.2 H Differential Comment MANUAL DIFFERENTIAL Platelet Estimate NORMAL (130-450,000) RBC Morph Micro Appear NORMAL APPEARANCE PT 12.6 INR 1.1 APTT 25.2 Sodium 137 Potassium 4.1 Chloride 102 Carbon Dioxide 19 L Anion Gap 16.0 H BUN 21 H Creatinine 1.3 H Estimated GFR (MDRD) 59 L Glucose 185 H Calcium 8.9 Total Bilirubin 0.9 AST 21 ALT 13 Alkaline Phosphatase 53 Troponin I High Sens Total Protein 6.4 L Albumin 3.9 Globulin 2.5 Albumin/Globulin Ratio 1.6 Lipase 19 L 01/15/20 03:54 WBC RBC Hgb Hct MCV MCH MCHC RDW Plt Count MPV Neut # (Auto) Lymph # (Auto) [place] # (Auto) Eos # (Auto) Baso # (Auto) Absolute Nucleated RBC Total Counted Band Neuts % (Manual) Abnorm Lymph % (Manual) Nucleated RBC % Neutrophils # (Manual) Lymphocytes # (Manual) Monocytes # (Manual) Eosinophils # (Manual) Basophils # (Manual) Differential Comment Platelet Estimate RBC Morph Micro Appear PT INR APTT Sodium Potassium Chloride Carbon Dioxide Anion Gap BUN Creatinine Estimated GFR (MDRD) Glucose Calcium Total Bilirubin AST ALT Alkaline Phosphatase Troponin I High Sens 6.7 Total Protein Albumin Globulin Albumin/Globulin Ratio Lipase - Rads (name of study) chest xray Radiology: Prelim report reviewed, See rad report PD MEDICAL DECISION MAKING - ED course Complexity details: reviewed old records, reviewed results, re-evaluated patient, considered differential, d/w patient ED course: pale, diaphoretic, and anxious on ED arrival. Shortly after arrival and while sitting on stretcher, he had LOC lasting less than 10 seconds with tonic stiffening and right lateral gaze deviation but rapid return to being awake and answering questions. There was no change in rate nor rhythm on monitor during this episode (110s, sinus tachycardia). He continued to appear pale and anxious but episodically, and as he received IV fluids to a total of 2 liters, he reported feeling increasingly comfortable and he had resolution of his pallor, diaphoresis, and tachycardia. Unfortunately, when RN attempted orthostatics (I was in room when this was tried), upon standing up his pulse rapidly raised to 119 ST on monitor accompanied by return of pallor and he became too weak to stand. Thus another liter of IV NS ordered. Early in stay, I discussed the case with Dr. Singleton, and he came to ED in the AM and evaluated patient. Pending infusion of 3rd liter of NS and reassessment, case signed out to Dr. Lake at end of my shift. Departure - Departure Disposition: 01 Home, Self Care Clinical Impression: Methamphetamine use, Syncope, Dehydration, Scrotal hematoma Condition: Stable Instructions: ED Dehydration Comments: You were seen today for passing out, looking at your labs it looks like you were dehydrated. Avoid alcohol and drug use. Use scrotal support as recommended by the surgeon who saw you today for the scrotal hematoma. Return as needed. Discharge Date/Time: 01/15/20 09:10
[2020-01-15] MEDS ORDERED: SODIUM CHLORIDE 0.9% 1,000 ML IV STA ×3 (03:51→06:17)
[2020-01-15] MEDS ORDERED: NITROGLYCERIN SL 0.4 MG TABLET SL ONE (03:54)
[2020-01-15] MEDS ORDERED: MORPHINE 2 MG/ML CARPUJECT ONE ×2 (03:54)
[2020-01-15 04:00] LABS: BASOPHILS % (AUTO) 0.3 %; HGB - HEMOGLOBIN 14.2 g/dL (14.0-18.0); LYMPHOCYTES % (AUTO) 6.1 %; MEAN CORPUSCULAR HEMOGLOBIN 31.4 pg (27.0-31.0); MEAN CORPUSCULAR HGB CONC 33.5 g/dL (32.0-36.0); MEAN CORPUSCULAR VOLUME 93.8 fL (80.0-94.0); MEAN PLATELET VOLUME 9.8 fL (7.4-11.4); MONOCYTES % (AUTO) 9.7 %; NEUTROPHILS % (AUTO) 83.1 %; PLT - PLATELET COUNT 304 10^3/uL (130-450); RED BLOOD COUNT 4.52 10^6/uL (4.70-6.10); RED CELL DISTRIBUTION WIDTH 12.9 % (12.0-15.0); WHITE BLOOD COUNT 22.1 x10^3/uL (4.8-10.8)
[2020-01-15 04:02] LABS: ABNORMAL LYMPHS % (MANUAL) 0 %
[2020-01-15 04:06] LABS: INR 1.1 (0.8-1.2); PT - PROTHROMBIN TIME 12.6 secs (9.9-12.6)
[2020-01-15 04:11] LABS: ALBUMIN 3.9 g/dL (3.2-5.5); ALBUMIN/GLOBULIN RATIO 1.6 (1.0-2.2); BILIRUBIN,TOTAL 0.9 mg/dL (0.2-1.0); CALCIUM 8.9 mg/dL (8.5-10.3); CREATININE 1.3 mg/dL (0.6-1.2); TOTAL PROTEIN 6.4 g/dL (6.7-8.2)
[2020-01-15 04:13] LABS: PARTIAL THROMBOPLASTIN TIME 25.2 secs (24.9-33.3)
[2020-01-15 04:26] LABS: BAND NEUTROPHILS % (MANUAL) 3 %; BASOPHILS # (MANUAL) 0.2 10^3/uL (0-0.1); BASOPHILS % (MANUAL) 1 %; DIFFERENTIAL COMMENT MANUAL DIFFERENTIAL; LYMPHOCYTES # (MANUAL) 2.4 10^3/uL (1.5-3.5); LYMPHOCYTES % (MANUAL) 11 %; MONOCYTES # (MANUAL) 2.2 10^3/uL (0.0-1.0); PLATELET ESTIMATE, MANUAL NORMAL (130-450,000) (NORMAL); RBC MORPHOLOGY (MULTIPLE) NORMAL APPEARANCE (NORMAL)
[2020-01-15] MEDS ORDERED: IOVERSOL 320 100 ML VIAL IVP ONE ×2 (07:30→18:55)
--- NOTE | 2020-01-15 08:21 | CT Report ---
PROCEDURE: ANGIO CHEST W/WO INDICATIONS: Syncope p surgery, PE protocol CONTRAST: IV CONTRAST: Optiray 320 ml: 76 PO CONTRAST: *NO PO CONTRAST TECHNIQUE: After the administration of intravenous contrast, 2 mm thick sections acquired from the pulmonary api andre to the posterior costophrenic angles. 3-dimensional maximum intensity projection (MIP) coronal a nd sagittal reformats were then acquired through the thorax. For radiation dose reduction, the follow ing was used: automated exposure control, adjustment of mA and/or kV according to patient size. COMPARISON: FINDINGS: Image quality: Excellent. Pulmonary arteries: Pulmonary arteries are normal in size, and demonstrate no intraluminal filling d efects to suggest central pulmonary embolism. Lungs and pleura: Lungs are clear. No pleural effusions or pneumothorax. Central and peripheral ai rways are patent. Mediastinum: Heart size is normal, without pericardial effusion. No mediastinal or hilar adenopathy . Thoracic aorta is normal in caliber and enhancement. Esophagus is normal in caliber, without hiat al hernia. Bones and chest wall: No suspicious bony lesions. Ribs and thoracic spine appear intact throughout. The thyroid is normal. No axillary or supraclavicular adenopathy. Abdomen: Visualized upper abdominal solid organs appear normal in the early arterial phase of enhanc ement. IMPRESSION: No pulmonary embolus is seen, source of syncopal episode after surgery is not found. No aspiration kraft spected. Reviewed by: Evan Ferguson MD on 01/15/2020 8:20 AM PDT Approved by: Evan Ferguson MD on 01/15/2020 8:20 AM PDT Station ID: [id number]
--- NOTE | 2020-01-15 08:26 | ED Physician Documentation ---
ED Addendum - Addendum Addendum: 01/15/20 08:25 Received in signout at shift change from Dr. Lawrence. Briefly this is a 49-year-old gentleman with history of alcohol and drug use who presents with syncopal episodes. He had a inguinal hernia repair yesterday. Labs show BELL with a BUN of 21 and a creatinine of 1.3. Baseline creatinine is 0.7. He passed out here without arrhythmia or ectopy on the monitor. He was found to be orthostatic. He was feeling much better and looking better after the administration of 3 L of crystalloid. He was seen by the surgeon for his scrotal hematoma who recommended conservative care only. Given the association with surgery and syncope CT angiography of the chest was done without the findings of pulmonary embolism. D-dimer was considered, but would probably be unhelpful a day after surgery with the scrotal hematoma. Disposition: discharged home; condition stable. Diagnosis: 1. Dehydration 2. Syncope 3. Acute kidney injury 4. Methamphetamine abuse.
[2020-01-15 08:39] VITALS: BP 123/93
--- NOTE | 2020-01-15 08:48 | XRAY Report ---
PROCEDURE: Chest 1 View X-Ray INDICATIONS: chest pain TECHNIQUE: One view of the chest was acquired. COMPARISON: None. FINDINGS: Surgical changes and devices: None. Lungs and pleura: No pleural effusions or pneumothorax. Lungs are clear. Mediastinum: Mediastinal contours appear normal. Heart size is normal. Bones and chest wall: No suspicious bony lesions. Overlying soft tissues appear unremarkable. IMPRESSION: Normal for age, source of current symptoms is not seen. Reviewed by: Evan Ferguson MD on 01/15/2020 8:46 AM PDT Approved by: Evan Ferguson MD on 01/15/2020 8:46 AM PDT Station ID: [id number]
== END 2020-01-15 09:10 | disposition home or self-care (01) ==
LOC: ED 03:39
DX: S30.22XA Contusion of scrotum and testes, initial encounter (principal); Y84.9 Medical procedure, unspecified as the cause of abnormal reaction of the patient, or of later complication, without mention of misadventure at the time of the procedure; L76.32 Postprocedural hematoma of skin and subcutaneous tissue following other procedure; I10 Essential (primary) hypertension; F17.210 Nicotine dependence, cigarettes, uncomplicated; E86.0 Dehydration; R55 Syncope and collapse; N17.9 Acute kidney failure, unspecified; F15.10 Other stimulant abuse, uncomplicated; R00.0 Tachycardia, unspecified
CPT/HCPCS: 36415; 71045; 71275; 80053; 83690; 84484; 85025; 85610; 85730; 93005; 96360; 96361; 99284; A9270; Q9967

== ENCOUNTER 2020-06-21 11:12 | Outpatient (CLI) | payer MEDICAID | END 2020-06-21 11:13 | disposition EMS.NT | LOC: EMS 11:12 | DX: S09.93XA Unspecified injury of face, initial encounter (principal); W31.89XA Contact with other specified machinery, initial encounter; Y93.H9 Activity, other involving exterior property and land maintenance, building and construction ==

== ENCOUNTER 2023-11-24 00:54 | Emergency (ER) | payer MEDICAID, OTHER ==
[2023-11-24 01:45] VITALS: O2SAT 98
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
[2023-11-24] MEDS: LIDOCAINE 1%-EPI 1:100000 20 ML MDV SUBQ STA (02:04)
[2023-11-24] MEDS: TETANUS/DIPHTHERIA/PERTUSSIS 0.5 ML SYRINGE IM ONE (02:49)
[2023-11-24] MEDS: oxyCODONE 5 MG TABLET PO STA (02:49)
[2023-11-24] MEDS: cephALEXin 250 MG CAPSULE PO STA (04:38)
[2023-11-24 04:57] VITALS: BP 151/94
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
== END 2023-11-24 04:55 | disposition home or self-care (01) ==
LOC: ED 00:54
DX: S01.81XA Laceration without foreign body of other part of head, initial encounter (principal); S50.11XA Contusion of right forearm, initial encounter; Y00.XXXA Assault by blunt object, initial encounter; F17.200 Nicotine dependence, unspecified, uncomplicated
CPT/HCPCS: 12034; 70450; 70486; 72125; 73090; 90471; 90715; 99283; 99284; A9270